=== PATIENT | male | born 1950 | race Caucasian/White ===

== ENCOUNTER 2016-08-17 22:11 | Emergency (ER) | payer OTHER, BC ==
[~2016-08-17] VITALS: Ht 182.9 cm; Wt 107.7 kg
[2016-08-17 22:18] VITALS: TEMP 36.6
[2016-08-17] MEDS ORDERED: CARBIDOPA/LEVODOPA 25/100MG TAB PO STA (22:51)
[2016-08-17 23:07] VITALS: Ht 182.9 cm; Wt 107.7 kg
[2016-08-17] MEDS ORDERED: ENTACAPONE 200 MG TAB PO STA (23:07)
[2016-08-17] MEDS ORDERED: NON-FORMULARY MEDICATION SCH (23:15)
[2016-08-17 23:19] LABS: BASO % 0.5 %; BASO ABS # 0.03 K/uL (0-0.2); COMPLETE YES; EOS % 2.2 %; HEMATOCRIT 44.2 % (42-52); IG% 0.2 %; LYMPH % 30.5 %; MEAN CELL VOLUME 92.7 fL (80-100); MEAN CORPUSCULAR HEMOGLOBIN 32.5 pg (25-34); MEAN CORPUSCULAR HGB CONC 35.1 g/dl (32-36); MEAN PLATELET VOLUME 9.9 fL (7.4-10.4); MONO % 12.4 %; NEUT % 54.2 %; PLATELET COUNT 222 K/uL (130-400); RED BLOOD COUNT 4.77 M/uL (4.7-6.1); WHITE BLOOD COUNT 5.58 K/uL (4.8-10.8)
[2016-08-17 23:41] LABS: ALT/SGPT 27 U/L (12-78); BLOOD UREA NITROGEN 24 mg/dl (7-18); BUN/CREATININE RATIO 21.6 (10-20); CALCIUM 8.8 mg/dl (8.5-10.1); CARBON DIOXIDE 25 mmol/L (21-32); CHLORIDE 108 mmol/L (98-107); GLUCOSE 117 mg/dl (70-99); SODIUM 142 mmol/L (136-145)
[2016-08-18] LABS: ALKALINE PHOSPHATASE 96 U/L (45-117)
[2016-08-18 00:20] LABS: MANUAL MICROSCOPIC REQUIRED? NO; REVIEW REQ? NO; URINE APPEARANCE CLEAR (CLEAR); URINE BILIRUBIN NEG (NEG); URINE COLOR DK YELLOW; URINE EPITHELIAL CELL AUTO 0-5 /lpf (0-5); URINE NITRITE NEG (NEG); URINE SPECIFIC GRAVITY 1.026 (1.000-1.030); UROBILINOGEN NEG (NEG)
[2016-08-18 00:22] LABS: POTASSIUM 4.3 mmol/L (3.5-5.1)
[2016-08-18] MEDS ORDERED: VENL150C PO (00:26)
[2016-08-18] MEDS ORDERED: CLON0.5T3 PO (00:26)
[2016-08-18] MEDS ORDERED: VENL1CAP92 PO (00:26)
[2016-08-18] MEDS ORDERED: PRAM0.755 PO (00:26)
[2016-08-18] MEDS ORDERED: CLON0.1T12 PO (00:29)
[2016-08-18] MEDS ORDERED: TRAZ50TA35 PO (00:29)
[2016-08-18] MEDS ORDERED: CARB25TA12 PO (00:29)
[2016-08-18] MEDS ORDERED: ENTA200T PO (00:29)
[2016-08-18 00:51] LABS: AST/SGOT 28 U/L (15-37); MAGNESIUM 2.2 mg/dl (1.8-2.4)
[2016-08-18 01:36] VITALS: BP 132/81; PULSE 64; O2SAT 94
--- NOTE | 2016-08-18 02:10 | EMERGENCY ROOM VISIT NOTE ---
History Report prepared by Ravi: José Antonio Winters Under the Supervision of: Dr. Tani Multani M.D. First contact with patient: 22:21 Chief Complaint: LEG PAIN,LEG INJURY Stated Complaint: LEG PAIN History of Present Illness The patient is a 65 year old male who presents to the Emergency Room with complaints of persistent leg cramping earlier today. The patient notes that he had been in bathroom and when he went to stand up his legs cramped. He states that the cramping in his left leg was worse than his right, but he felt it in both legs. He described the discomfort as feeling like his legs had "locked up. " The patient called for his nurses and was able to walk back to his bed. However, he wanted to present to the ED for further evaluation because he was afraid of falling. Per patient's daughter, the patient recently switched Neurologists for his Parkinson's. His new Neurologist has been trying to wean him off some medicine since he felt the patient was taking too much and was still having Parkinson's symptoms. The patient notes that it has been a little difficult to wean off the medicine and the past two nights he has been taking the extra dose so that he is able to stay awake. He notes right now that it is tempting to take the extra dose of medicine because it would help make his symptoms feel better. Pt denies LOC, headache, fevers, chills, diaphoresis, visual changes, neck pain, chest pain, breathing difficulties, nausea, vomiting , abdominal pain, back pain, melena, hematochezia, urinary symptoms, lymphadenopathy, rash, or other complaints. Source of History: patient, family Onset: earlier today Position: leg (bilateral) Quality: cramping Timing: other (persistent) Review of Systems See HPI for pertinent positives and negatives. A total of ten systems were reviewed and were otherwise negative. Past Medical & Surgical Medical Problems: (1) Parkinson disease Family History No pertinent family history Social History Smoking Status: Never Smoker Marital Status: Housing Status: lives alone Occupation Status: disabled Current/Historical Medications Scheduled Carbidopa/Levodopa (Sinemet 25MG/100MG), 3 TABS PO QID Clonazepam (Klonopin), 0.5 MG PO QPM Clonidine Hcl (Catapres), 0.1 MG PO QPM Entacapone (Comtan), 200 MG PO QID Pramipexole Dihydrochloride (Mirapex Er), 0.75 MG PO QAM Venlafaxine Hcl (Effexor Xr), 37.5 CAP PO QAM Venlafaxine Hcl (Effexor Xr), 150 MG PO QAM Scheduled PRN Trazodone Hcl (Trazodone), 25 MG PO HS PRN for Sleep Allergies Coded Allergies: No Known Allergies (Unverified , 08/17/16) Physical Exam Vital Signs Date Time Temp Pulse Resp B/P Pulse Ox O2 Delivery O2 Flow Rate FiO2 08/18/16 01:36 64 16 132/81 94 Room Air 08/18/16 00:01 59 14 158/89 95 Room Air 08/17/16 22:18 36.6 68 20 159/87 94 Room Air Physical Exam GENERAL: Awake, alert, well-appearing, in no distress HENT: Normocephalic, atraumatic. Oropharynx unremarkable. EYES: Normal conjunctiva. Sclera non-icteric. NECK: Supple. No nuchal rigidity. FROM. No JVD. RESPIRATORY: Clear to auscultation. CARDIAC: Regular rate, normal rhythm. Extremities warm and well perfused. Pulses equal. ABDOMEN: Soft, non-distended. No tenderness to palpation. No rebound or guarding. No masses. RECTAL: Deferred. MUSCULOSKELETAL: Chest examination reveals no tenderness. The back is symmetrical on inspection without obvious abnormality. There is no CVA tenderness to palpation. No joint edema. LOWER EXTREMITIES: Calves are equal size bilaterally and non-tender. No edema. No discoloration. NEURO: Normal sensorium. No sensory or motor deficits noted. Somewhat thick speech, masked facies of Parkinson's. SKIN: No rash or jaundice noted. Medical Decision & Procedures Laboratory Results 08/17/16 23:05 Red Blood Count 4.77, Mean Corpuscular Volume 92.7, Mean Corpuscular Hemoglobin 32.5, Mean Corpuscular Hemoglobin Concent 35.1, Mean Platelet Volume 9.9, Neutrophils (%) (Auto) 54.2, Lymphocytes (%) (Auto) 30.5, Monocytes (%) (Auto) 12.4, Eosinophils (%) (Auto) 2.2, Basophils (%) (Auto) 0.5, Neutrophils # (Auto ) 3.03, Lymphocytes # (Auto) 1.70, Monocytes # (Auto) 0.69, Eosinophils # (Auto ) 0.12, Basophils # (Auto) 0.03 08/17/16 23:05 08/17/16 23:50 Test 08/17/16 00:00 08/17/16 23:05 08/17/16 23:50 Urine Color DK YELLOW Urine Appearance CLEAR (CLEAR) Urine pH 5.0 (4.5-7.5) Urine Specific [place] 1.026 (1.000-1.030) Urine Protein NEG (NEG) Urine Glucose (UA) NEG (NEG) Urine Ketones TRACE (NEG) Urine Occult Blood NEG (NEG) Urine Nitrite NEG (NEG) Urine Bilirubin NEG (NEG) Urine Urobilinogen NEG (NEG) Urine Leukocyte Esterase SMALL (NEG) Urine WBC (Auto) 5-10 /hpf (0-5) Urine RBC (Auto) 0-4 /hpf (0-4) Urine Hyaline Casts (Auto) 1-5 /lpf (0-5) Urine Epithelial Cells (Auto) 0-5 /lpf (0-5) Urine Bacteria (Auto) NEG (NEG) White Blood Count 5.58 K/uL (4.8-10.8) Red Blood Count 4.77 M/uL (4.7-6.1) Hemoglobin 15.5 g/dL (14.0-18.0) Hematocrit 44.2 % (42-52) Mean Corpuscular Volume 92.7 fL (80-100) Mean Corpuscular Hemoglobin 32.5 pg (25-34) Mean Corpuscular Hemoglobin Concent 35.1 g/dl (32-36) Platelet Count 222 K/uL (130-400) Mean Platelet Volume 9.9 fL (7.4-10.4) Neutrophils (%) (Auto) 54.2 % Lymphocytes (%) (Auto) 30.5 % Monocytes (%) (Auto) 12.4 % Eosinophils (%) (Auto) 2.2 % Basophils (%) (Auto) 0.5 % Neutrophils # (Auto) 3.03 K/uL (1.4-6.5) Lymphocytes # (Auto) 1.70 K/uL (1.2-3.4) Monocytes # (Auto) 0.69 K/uL (0.11-0.59) Eosinophils # (Auto) 0.12 K/uL (0-0.5) Basophils # (Auto) 0.03 K/uL (0-0.2) RDW Standard Deviation 44.6 fL (36.4-46.3) RDW Coefficient of Variation 13.1 % (11.5-14.5) Immature Granulocyte % (Auto) 0.2 % Immature Granulocyte # (Auto) 0.01 K/uL (0.00-0.02) Anion Gap 9.0 mmol/L (3-11) Est Creatinine Clear Calc Drug Dose 86.0 ml/min Estimated GFR () 81.8 Estimated GFR (Non- 70.6 BUN/Creatinine Ratio 21.6 (10-20) Calcium Level 8.8 mg/dl (8.5-10.1) Total Bilirubin 0.5 mg/dl (0.2-1) Alanine Aminotransferase (ALT/SGPT) 27 U/L (12-78) Alkaline Phosphatase 96 U/L (45-117) Total Protein 7.1 gm/dl (6.4-8.2) Albumin 3.7 gm/dl (3.4-5.0) Thyroid Stimulating Hormone (TSH) 1.870 uIu/ml (0.300-4.500) Magnesium Level 2.2 mg/dl (1.8-2.4) Direct Bilirubin < 0.1 mg/dl (0-0.2) Aspartate Amino Transf (AST/SGOT) 28 U/L (15-37) Total Creatine Kinase 154 U/L (39-308) Chemistry Specimen Hemolysis Laboratory results reviewed by me Medications Administered Medications (Trade) Dose Ordered Sig/Cy Route Start Time Stop Time Status Last Admin Dose Admin Carbidopa/Levodopa (Sinemet 25/ 100MG Tab) 3 tab NOW STAT PO 08/17/16 22:51 08/17/16 22:54 DC 08/17/16 23:15 3 TAB Entacapone (Comtan) 200 mg ONE STAT PO 08/17/16 23:07 08/17/16 23:08 DC 08/17/16 23:15 200 MG ED Course 2242: The patient was evaluated in room B4. A complete history and physical exam was performed. 2251: Ordered Carbidopa/ Levodopa 3 tab PO. 2307: Ordered Entacapone 200 mg PO. 0045: I reevaluated the patient. Discussed results and discharge instructions: The patient and his daughter verbalized understanding and agreement. The patient is ready for discharge. Medical Decision Triage Nursing notes reviewed. The patient's presentation and history were concerning for Parkinson's disease and lower leg complaints. Etiologies such as electrolyte abnormality, muscular spasm, complication of Parkinson's disease, joint effusion, infection, trauma, muscular, idiopathic, as well as others were entertained. The patient was doing well on examination. She requested a dose of his Parkinson's medications and was given them. His CBC and urinalysis were unremarkable. The patient's total CK was unremarkable. Potassium and magnesium were normal. On reassessment he was feeling better. He was reassured that his testing was normal. His legs felt better. I discussed conservative management with the patient. I suspect that this was a problem with his. The patient and daughter felt very comfortable with conservative management. He will follow-up closely as an outpatient. If he worsens in any way he will be brought back to the emergency from for reevaluation. By the evaluation outlined above other emergent etiologies such as those listed in the differential, as well as others, were deemed relatively unlikely. The patient and daughter were informed about the findings as listed above. All questions were answered and they were pleased with the treatment. Return instructions were outlined and the patient was discharged in stable condition. The patient was referred to his PCP for follow-up first thing this week for a recheck of the current condition. The chart was completed utilizing [employer] Speech voice recognition software. Grammatical errors, random word insertions, pronoun errors, and incomplete sentences are an occasional consequence of this system due to software limitations, ambient noise, and hardware issues. Any formal questions or concerns about the content, text, or information contained within the body of this dictation should be directly addressed to the physician for clarification. Impression Primary Impression: Bilateral leg pain Additional Impression: History of Parkinson's disease Scribe Attestation The scribe's documentation has been prepared under my direction and personally reviewed by me in its entirety. I confirm that the note above accurately reflects all work, treatment, procedures, and medical decision making performed by me. Departure Information Dispostion Home / Self-Care Referrals [facility] (PCP) Forms HOME CARE DOCUMENTATION FORM, IMPORTANT VISIT INFORMATION Patient Instructions My [facility] Additional Instructions Continue current medications. Follow-up with Dr. Magen Ramirez tomorrow to discuss the Emergency Room visit and medications. Return to the ER for inability to ambulate, severe muscle pains, headache, passing out, difficulty breathing, fevers, numbness, tingling, worsening of your condition, or as needed. Problem Qualifiers
[2016-11-14] MEDS ORDERED: HYDR-3419 PO (15:04)
== END 2016-08-18 01:39 | disposition home or self-care (01) ==
LOC: EDBD 22:11 → C.EDB 22:11
DX: M79.605 Pain in left leg (principal); M79.604 Pain in right leg; G20 Parkinson's disease; Z79.899 Other long term (current) drug therapy

== ENCOUNTER → 2016-11-05 | Outpatient (CLI) | payer OTHER, BC ==
[~2016-11-05] MED LIST: CARB25TA12 PO; CLON0.1T12 PO; CLON0.5T3 PO; ENTA200T PO; HYDR-3419 PO; LORA-741 PO; Mirapex PO; PRAM0.755 PO; TRAZ50TA35 PO; VENL150C PO; VENL1CAP92 PO
[2016-11-05 10:00] LABS: BLOOD UREA NITROGEN 21 mg/dl (7-18); BUN/CREATININE RATIO 19.4 (10-20); CARBON DIOXIDE 27 mmol/L (21-32); CHLORIDE 107 mmol/L (98-107); GLUCOSE 98 mg/dl (70-99); POTASSIUM 4.3 mmol/L (3.5-5.1); SODIUM 141 mmol/L (136-145)
[2016-11-05 10:06] LABS: CALCIUM 9.1 mg/dl (8.5-10.1)
== END | disposition home or self-care (01) ==
LOC: C.LABVPSUW 09:11
PROVIDERS: ATTEND Internal Medicine Critical Care Medicine
DX: N40.0 Benign prostatic hyperplasia without lower urinary tract symptoms (principal); N28.9 Disorder of kidney and ureter, unspecified

== ENCOUNTER → 2016-11-13 | Outpatient (CLI) | payer OTHER, BC ==
--- NOTE | 2016-11-13 15:40 | DIAGNOSTIC IMAGING REPORT ---
ULTRASOUND TESTES AND SCROTUM CLINICAL HISTORY: Right testicular lump and pain. COMPARISON STUDY: No priors. TECHNIQUE: Real-time, grayscale, and color Doppler sonography of the testes and scrotum is performed. Images are reviewed in the transverse and longitudinal planes. FINDINGS: The testes are normal in size. The right testis measures 4.6 x 2.8 x 3.8 cm and the left testis measures 3.8 x 1.9 x 2.9 cm. There is a large lobulated mass identified in the mid to lower pole of the right testis. This measures 3.8 x 2.6 x 3.6 cm in aggregate dimension. Internal flow shown on color imaging. The left testis is homogeneous in echotexture with no left testicular mass identified. Testicular blood flow is present bilaterally and normal Doppler waveforms are preserved in both testes. The epididymal heads are normal in appearance. The right epididymal head measures 1.0 cm in length and the left epididymal head measures 1.0 cm in length. No varicocele or hydrocele is seen. IMPRESSION: 1. There is a 3.8 cm hypoechoic lobulated and vascular mass lesion identified in the mid to lower pole of the right testis. This should be considered testicular neoplasm until proven otherwise. 2. The left testis is normal in appearance. Electronically signed by: Wali Rojas M.D. 11/13/2016 3:39 PM Dictated Date/Time: 11/13/2016 3:33 PM
[2016-11-13 18:54] LABS: BASO % 0.5 %; BASO ABS # 0.03 K/uL (0-0.2); COMPLETE YES; EOS % 1.9 %; HEMATOCRIT 46.7 % (42-52); LYMPH % 36.3 %; LYMPH ABS # 2.08 K/uL (1.2-3.4); MEAN CORPUSCULAR HEMOGLOBIN 32.2 pg (25-34); MEAN CORPUSCULAR HGB CONC 34.3 g/dl (32-36); MONO % 8.4 %; NEUT % 52.9 %; PLATELET COUNT 242 K/uL (130-400); RED BLOOD COUNT 4.97 M/uL (4.7-6.1); WHITE BLOOD COUNT 5.73 K/uL (4.8-10.8)
[2016-11-13 19:26] LABS: BLOOD UREA NITROGEN 18 mg/dl (7-18); CALCIUM 9.5 mg/dl (8.5-10.1); CARBON DIOXIDE 24 mmol/L (21-32); CHLORIDE 108 mmol/L (98-107); GLUCOSE 100 mg/dl (70-99); SODIUM 141 mmol/L (136-145)
== END | disposition home or self-care (01) ==
LOC: C.ULTRBC 14:40
PROVIDERS: ATTEND Urology
DX: N50.9 Disorder of male genital organs, unspecified (principal); N50.819 Testicular pain, unspecified; D40.11 Neoplasm of uncertain behavior of right testis

== ENCOUNTER 2016-11-14 10:49 | Day surgery (SDC) | payer OTHER, BC ==
--- NOTE | 2016-11-13 19:12 | DIAGNOSTIC IMAGING REPORT ---
CHEST 2 VIEWS ROUTINE CLINICAL HISTORY: Preoperative evaluation. Testicular mass. COMPARISON STUDY: No previous studies for comparison. FINDINGS: The lung volumes are normal. Electronic device projects over the left hemithorax. There is no evidence of pulmonary edema. There is no pneumothorax or pleural effusion. No consolidation is present. Cardiomediastinal silhouette is normal. IMPRESSION: No acute cardiopulmonary findings. Electronically signed by: Angus Ruff M.D. 11/13/2016 7:11 PM Dictated Date/Time: 11/13/2016 7:09 PM
[~2016-11-14] VITALS: Ht 182.9 cm; Wt 102.3 kg
[~2016-11-14 10:49] MED LIST changes: +CEFAZOLIN 2000 MG/60 ML D5W IV SCH; -HYDR-3419 PO; -LORA-741 PO; -Mirapex PO; +PATIENT'S HEIGHT AND/OR WEIGHT NEEDED SCH
[2016-11-14 11:16] VITALS: BP 161/89; PULSE 71; TEMP 37; O2SAT 94; Ht 182.9 cm; Wt 102.3 kg
[2016-11-14] MEDS ORDERED: VENL1CAP92 PO (11:40)
[2016-11-14] MEDS ORDERED: VENL150C PO (11:40)
[2016-11-14] MEDS ORDERED: CLON0.5T3 PO (11:40)
[2016-11-14] MEDS ORDERED: Mirapex PO (11:40)
[2016-11-14] MEDS ORDERED: CARB25TA12 PO (11:40)
[2016-11-14] MEDS ORDERED: TRAZ50TA35 PO (11:40)
[2016-11-14] MEDS ORDERED: ENTA200T PO (11:40)
[2016-11-14] MEDS ORDERED: LORA-741 PO (11:40)
[2016-11-14] MEDS ORDERED: ONDANSETRON INJ 2 MG/ML 2 ML VIAL ONE (12:16)
[2016-11-14] MEDS ORDERED: FENTANYL CITRATE INJ 50 MCG/1 ML 2 ML VIAL ONE ×3 (12:16→14:01)
[2016-11-14] MEDS ORDERED: DEXAMETHASONE SOD INJ 4 MG/ML VIAL ONE (12:16)
[2016-11-14] MEDS ORDERED: MIDAZOLAM HCL 1 MG/ML 2ML VIAL ONE (12:16)
[2016-11-14] MEDS ORDERED: LIDOCAINE HCL 2% 2 ML VIAL (20MG/ML) ONE (12:16)
[2016-11-14] MEDS ORDERED: PROPOFOL IV EMULSION 10 MG/ML 20 ML VIAL IV ONE (12:16)
--- NOTE | 2016-11-14 13:04 | History & Physical Bridge Note ---
H&P Re-Evaluation Bridge Note: I have examined the patient, reviewed the History & Physical and in the interval since the performance of the History & Physical I have noted the following changes of clinical significance: No changes noted
[2016-11-14] MEDS ORDERED: EpHEDrine SULFATE 50MG/5ML SYR ONE (13:18)
[2016-11-14] MEDS ORDERED: LIDOCAINE HCL 1% 20 ML VIAL ONE (13:19)
[2016-11-14] MEDS ORDERED: PHENYLEPHRINE 100MCG/ML 5ML SYR ONE (13:46)
[2016-11-14] MEDS ORDERED: PHENYLEPHRINE 100MCG/ML 5ML SYR IV PRN ×2 (14:00)
[2016-11-14] MEDS ORDERED: ONDANSETRON INJ 2 MG/ML 2 ML VIAL IV PRN ×2 (14:00)
[2016-11-14] MEDS ORDERED: ATROPINE SULFATE 0.1 MG/ML 5ML SYR IV PRN ×2 (14:00)
[2016-11-14] MEDS ORDERED: EpHEDrine SULFATE INJ 50 MG/ML AMP IV PRN ×2 (14:00)
[2016-11-14] MEDS ORDERED: HYDROmorphone INJ 2 MG/ML SYR/VIAL IV PRN (14:00)
[2016-11-14] MEDS: HYDROmorphone INJ 2 MG/ML SYR/VIAL IV PRN ×3 (14:44→15:05)
--- NOTE | 2016-11-14 14:55 | [facility] Post Operative Brief Note ---
Immediate Operative Summary Operative Date Nov 14, 2016. Pre-Operative Diagnosis 3 cm Right Testicular Mass Post-Operative Diagnosis 3 cm Right Testicular Mass Procedure(s) Performed Right Radical Orchiectomy Surgeon Dr. Fisher Cancer Program Consultant Surgeon(s) none Estimated Blood Loss 10 cc Findings lipoma of cord testicular mass Specimens A. Lipoma of Right Spermatic Cord B. Right Testicle Disposition Recovery Room / PACU
--- NOTE | 2016-11-14 15:03 | [facility] Operative Report ---
Operative Report Operative Date Nov 14, 2016. Pre-Operative Diagnosis 3 cm Right Testicular Mass Post-Operative Diagnosis same Procedure(s) Performed Right radical orchiectomy Surgeon Dr. Fisher Plastics Bench Mechanic Surgeon(s) none Estimated Blood Loss 10 cc Findings lipoma of cor5d r testicular mass Specimens A. Lipoma of Right Spermatic Cord B. Right Testicle Disposition Recovery Room / PACU Description of Procedure The patient was taken to the operating room where he received preoperative antibiotics and Venodyne stockings were placed. He was given general anesthesia in the supine position. He isn't shaved prepped and draped in the usual sterile fashion. A lateral incision midway between the anterior superior iliac spine and the pubic tubercle laterally on the right side was made for about 4 cm. This was extended down through the subcutaneous tissues to Naima' s fascia. 2 veins were encountered which were tied with 3 0 free ties of Vicryl. The external oblique fascia just at the area of the external ring was identified fascia was cleared as best as I could given some protuberance of the belly. The external ring was opened up securely towards the internal ring sharply. The ilioinguinal nerve was identified and retracted laterally. The cord was mobilized just over the pubic tubercle and there was a lipoma of the cord that was stuck right at this level. This was from the cord and followed up to the internal ring. The neck of the lipoma was quite narrow. I did discuss this with Dr. Geovany Velazco was out of the hospital but analytics consultant. He suggested that I tied the lipoma cord off so that I could separate this from the cord and tie the cord off as well. I did explore the lipoma prior to amputating it. It didn't appear to be only a lipoma. The neck of the lipoma was tied off with 20 3 silk ties 2 of them. And sent separately to pathology. The cord had been clamped just at the level of the external ring initially then I didn't clamped further up towards the internal ring after the lipoma had been removed. It was divided to clamps and tied off with 2-0 silk sutures on both clamps and then a 0 silk suture ligature was used to tie off each half of the cord. No bleeding was seen at this juncture. Great care was taken to make sure that there was no bleeding when the cord was brought up into the wound and from the scrotal wall. At this juncture the external oblique fascia was approximated with running 2-0 Vicryl. The wound was irrigated. There is no evidence of any bleeding that I could see. The Naima's fascia was reapproximated with 3 3-0 Vicryl sutures. Subcutaneous tissues and skin was superiorly anesthetized with 1% lidocaine without epinephrine. The subcutaneous tissue was reapproximated with 3-0 Vicryl interrupted sutures and then the skin was closed with tonja. Patient had a dressing placed the wound was cultured and the surrounding area was cleaned as best skin cut with wet and dry towel. A scrotal support was placed with fluff dressings and the patient was transferred to the recovery room in stable condition I attest to the content of the Intraoperative Record and any orders documented therein. Any exceptions are noted below.
[2016-11-14] MEDS ORDERED: HYDR-3419 PO (15:04)
--- NOTE | 2016-11-14 15:06 | Discharge Instructions ---
Discharge Instructions Date of Service Nov 14, 2016. Visit Reason for Visit: Testicular Mass Discharge Discharge Diagnosis / Problem: post op r radical orchiectomy Discharge Goals Goal(s): Improve disease control, Learn about illness, Diagnostic testing, Therapeutic intervention Activity Recommendations Activity Limitations: per Instructions/Follow-up section (keep ice on wound 30 minutes on and 30 off) Anesthesia . Post Anesthesia Instructions: If you have had General Anesthesia or IV Sedation: * Do not drive today. * Resume driving when surgeon permits. * Do not make important decisions or sign legal documents today. * Call surgeon for: 1. Temperature elevations greater than 101 degrees F. 2. Uncontrollable pain. 3. Excessive bleeding. 4. Persistent nausea and vomiting. 5. Medication intolerance (nausea, vomiting or rash). * For nausea and vomiting use only clear liquids such as: tea, soda, bouillon until nausea subsides, then gradually increase diet as tolerated. * If you have any concerns or questions, call your surgeon's office. If physician is unavailable and it is an emergency, call 911 or go to the nearest emergency room. . Diet Recommendations Recommended Home Diet: resume previous diet Procedures Procedures Performed: Right Radical Orchiectomy Pending Studies Studies pending at discharge: no Medical Emergencies . Who to Call and When: Medical Emergencies: If at any time you feel your situation is an emergency, please call 911 immediately. . Non-Emergent Contact Non-Emergency issues call your: Hospital Doctor, Neurologist, Urologist Call Non-Emergent contact if: temperature is above 101, your pain is not controlled, your pain is concerning you, wound has increased drainage, wound has increased redness, wound has increased pain . . "Provider Documentation" section prepared by Neil Fisher. .
[2016-11-14 15:35] VITALS: BP 141/83; PULSE 68; TEMP 36.8; O2SAT 95
[2016-11-14 16:00] VITALS: BP 139/84; PULSE 67; O2SAT 94
--- NOTE | 2016-11-14 16:18 | Anesthesiology Progress Note ---
Anesthesia Post Op Note Date & Time Nov 14, 2016 at 16:18 Vital Signs Pain Intensity: 4 Vital Signs Past 12 Hours Date Time Temp Pulse Resp B/P (MAP) Pulse Ox O2 Delivery O2 Flow Rate FiO2 11/14/16 16:00 67 16 139/84 94 Room Air 11/14/16 15:35 36.8 68 16 141/83 95 Room Air 11/14/16 15:29 64 16 95 11/14/16 15:29 64 16 11/14/16 15:25 139/81 11/14/16 15:24 66 16 95 11/14/16 15:24 66 16 11/14/16 15:21 130/80 11/14/16 15:19 63 14 11/14/16 15:19 62 14 92 11/14/16 15:16 36.9 11/14/16 15:15 137/79 11/14/16 15:14 63 16 92 11/14/16 15:14 63 16 11/14/16 15:13 65 17 11/14/16 15:13 66 17 92 11/14/16 15:10 131/83 11/14/16 15:08 64 12 11/14/16 15:08 65 12 94 11/14/16 15:07 64 15 11/14/16 15:07 64 15 95 11/14/16 15:05 139/84 11/14/16 15:02 63 18 92 11/14/16 15:02 63 18 11/14/16 15:01 122/85 11/14/16 14:57 66 17 94 11/14/16 14:57 63 17 11/14/16 14:56 62 12 135/82 96 11/14/16 14:56 61 12 11/14/16 14:51 62 16 11/14/16 14:51 62 16 151/88 96 11/14/16 14:46 64 25 98 11/14/16 14:46 64 25 11/14/16 14:45 144/86 11/14/16 14:41 67 17 11/14/16 14:41 67 17 98 11/14/16 14:40 135/81 11/14/16 14:36 67 19 11/14/16 14:36 67 19 143/77 98 11/14/16 14:36 36.9 68 16 143/77 97 Mask 10 11/14/16 11:16 37 71 20 161/89 (113) 94 Room Air Notes Mental Status: alert / awake / arousable, participated in evaluation Pt Amnestic to Procedure: Yes Nausea / Vomiting: adequately controlled Pain: adequately controlled Airway Patency, RR, SpO2: stable & adequate BP & HR: stable & adequate Hydration State: stable & adequate Anesthetic Complications: no major complications apparent
[2016-11-14 16:30] VITALS: BP 128/74; PULSE 68; TEMP 36.8; O2SAT 94
== END 2016-11-14 17:00 | disposition home or self-care (01) ==
LOC: C.ACU 10:49
PROVIDERS: ATTEND Urology
DX: C62.91 Malignant neoplasm of right testis, unspecified whether descended or undescended (principal); D17.6 Benign lipomatous neoplasm of spermatic cord

== ENCOUNTER → 2016-12-02 | Outpatient (CLI) | payer MEDICARE ==
[~2016-12-02] MED LIST changes: -CEFAZOLIN 2000 MG/60 ML D5W IV SCH; -CLON0.1T12 PO; +HYDR-3419 PO; +LORA-741 PO; +Mirapex PO; +OPTIRAY 320 IV PRN; -PATIENT'S HEIGHT AND/OR WEIGHT NEEDED SCH; -PRAM0.755 PO
--- NOTE | 2016-12-02 15:40 | DIAGNOSTIC IMAGING REPORT ---
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 COMPARISON: None. FINDINGS: The lungs are clear. The mediastinal vascular structures are within normal limits. No mediastinal or hilar lymphadenopathy. No pleural effusion or pneumothorax. Limited views of the upper abdomen demonstrate a normal liver and spleen. IMPRESSION: No significant abnormality identified within the chest. The above report was generated using voice recognition software. It may contain grammatical, syntax or spelling errors. Electronically signed by: Silvano Krishnamurthy M.D. 12/02/2016 3:39 PM Dictated Date/Time: 12/02/2016 3:38 PM
--- NOTE | 2016-12-02 16:58 | DIAGNOSTIC IMAGING REPORT ---
CT OF THE ABDOMEN AND PELVIS WITH CONTRAST CLINICAL HISTORY: Testicular cancer. COMPARISON STUDY: None. TECHNIQUE: Following IV administration of 116 mL of Optiray-320, axial images of the abdomen and pelvis were obtained from the lung bases to the proximal femurs. Images were reviewed in the axial, sagittal, and coronal planes. IV contrast was administered without complication. FINDINGS: The chest CT will be reported separately. The liver, spleen, pancreas and left adrenal gland are unremarkable. There is a 1.4 cm right adrenal nodule. There are water attenuation bilateral renal lesions, the largest of which is 3.2 cm lesion within the lower aspect of the left renal pelvis. These reflect cysts. There are no solid renal lesions. There is no hydronephrosis. The caliber and wall thickness of small and large bowel are normal. No enlarged lymph nodes are identified within the abdomen or the pelvis. There are findings consistent with a right sided orchiectomy with mild infiltration within the operative bed along the expected course of the right spermatic cord. There is no fluid collection to suggest an abscess. There are no suspicious osseous lesions. IMPRESSION: 1. No convincing evidence for metastatic disease within the abdomen or pelvis. 2. 1.4 cm right adrenal nodule. This is indeterminate although likely benign and can be assessed on subsequent studies to ensure stability. 3. Expected findings following radical right orchiectomy. Electronically signed by: Angus Ruff M.D. 12/02/2016 4:57 PM Dictated Date/Time: 12/02/2016 3:35 PM
== END | disposition home or self-care (01) ==
LOC: C.CTS 14:09
PROVIDERS: ATTEND Urology
DX: C62.90 Malignant neoplasm of unspecified testis, unspecified whether descended or undescended (principal); R97.20 Elevated prostate specific antigen [PSA]

== ENCOUNTER → 2017-01-23 | Outpatient (CLI) | payer MEDICARE ==
[~2017-01-23] MED LIST changes: -OPTIRAY 320 IV PRN
== END ==
LOC: C.LABVPSUW 09:00
PROVIDERS: ATTEND Internal Medicine Critical Care Medicine
DX: R97.20 Elevated prostate specific antigen [PSA] (principal)

== ENCOUNTER → 2017-02-19 | Outpatient (CLI) | payer MEDICARE ==
[~2017-02-19] MED LIST changes: +OPTIRAY 320 IV PRN
--- NOTE | 2017-02-19 13:39 | DIAGNOSTIC IMAGING REPORT ---
CT OF THE ABDOMEN AND PELVIS WITH CONTRAST CLINICAL HISTORY: Testicular cancer. COMPARISON STUDY: CT of the abdomen and pelvis December 02, 2016. TECHNIQUE: Following IV administration of 118 mL of Optiray-320, axial images of the abdomen and pelvis were obtained from the lung bases to the proximal femurs. Images were reviewed in the axial, sagittal, and coronal planes. IV contrast was administered without complication. A dose lowering technique was utilized adhering to the principles of ALARA. Oral contrast was administered. CT DOSE: 848.91 mGy.cm FINDINGS: The liver, spleen, left adrenal gland and pancreas are unremarkable. Water attenuation bilateral renal lesions reflect cysts. A right adrenal nodule is unchanged since prior exam. This measures approximately 1.9 cm. No enlarged abdominal or pelvic lymph nodes are present. Caliber and wall thickness of small and large bowel are normal. Prostate is mildly enlarged. There are expected findings following right radical orchiectomy. There are no suspicious osseous lesions. IMPRESSION: 1. No evidence of metastatic disease within the abdomen or pelvis. 2. Stable right adrenal nodule which is likely benign but can be assessed on subsequent studies to ensure stability. Electronically signed by: Angus Ruff M.D. 02/19/2017 1:38 PM Dictated Date/Time: 02/19/2017 1:30 PM
== END | disposition home or self-care (01) ==
LOC: C.CTS 12:07
PROVIDERS: ATTEND Internal Medicine Hematology & Oncology
DX: C62.10 Malignant neoplasm of unspecified descended testis (principal); E27.9 Disorder of adrenal gland, unspecified

== ENCOUNTER → 2017-02-24 | Outpatient (CLI) | payer MEDICARE ==
[~2017-02-24] MED LIST changes: -OPTIRAY 320 IV PRN
== END | disposition home or self-care (01) ==
LOC: C.PATHSPEC 18:18
PROVIDERS: ATTEND Urology
DX: R97.20 Elevated prostate specific antigen [PSA] (principal)

== ENCOUNTER → 2017-05-28 | Outpatient (CLI) | payer MEDICARE ==
[~2017-05-28] MED LIST changes: -HYDR-3419 PO; +OPTIRAY 320 IV PRN
--- NOTE | 2017-05-28 11:34 | DIAGNOSTIC IMAGING REPORT ---
CT SCAN OF THE ABDOMEN AND PELVIS WITH IV CONTRAST CLINICAL HISTORY: Testicular cancer follow-up. COMPARISON STUDY: Abdominal CT dated 02/19/2017. TECHNIQUE: Following the IV administration of 94 cc of Optiray 320, CT scan of the abdomen and pelvis is performed from the lung bases to the proximal femora. Images are reviewed in the axial, sagittal, and coronal planes. IV contrast was administered without complication. A dose lowering technique was utilized adhering to the principles of ALARA. CT DOSE: 1360.17 mGycm FINDINGS: Lung bases: The heart is normal in size and without pericardial effusion. The lung bases are clear noting dependent atelectasis. Liver: The contrast-enhanced liver is normal in size, contour, and attenuation. There is no intrahepatic biliary ductal dilatation. The hepatic veins and portal veins are patent. Gallbladder: Unremarkable. Spleen: Normal in size and attenuation. Pancreas: Unremarkable. Adrenal glands: A 1.5 cm right adrenal nodule is unchanged from prior studies. Adrenal glands are otherwise normal in appearance. Kidneys: The contrast enhanced kidneys demonstrate mild cortical atrophy and are without hydronephrosis. The kidneys enhance symmetrically. Bilateral renal cysts measure up to 3.3 cm. Abdominal vasculature: The abdominal aorta is normal in course and caliber noting mild to moderate atherosclerotic calcification. Bowel: Mild to moderate colonic fecal retention is observed. No bowel obstruction is seen. The appendix is well-visualized and normal. Peritoneum: There is no intraperitoneal free air or abdominal ascites. There is a small fat-containing umbilical hernia. Lymphadenopathy: There are no pathologically enlarged retroperitoneal lymph nodes. Pelvic viscera: There is median lobe hypertrophy of the prostate gland. The bladder wall appears thickened and trabeculated suggesting chronic outlet obstruction. A tiny diverticulum is noted at the bladder dome. There is evidence of previous right inguinal herniorrhaphy. Skeletal structures: There is moderate lumbosacral spondylosis. Arthritic change is also seen in the hips and sacroiliac joints. No lytic or blastic lesions are seen. IMPRESSION: 1. There is no evidence of metastatic disease in the abdomen or pelvis. 2. A stable right adrenal nodule is of low suspicion. 3. Mild to moderate colonic fecal retention. Electronically signed by: Wali Rojas M.D. 05/28/2017 11:32 AM Dictated Date/Time: 05/28/2017 11:22 AM
== END | disposition home or self-care (01) ==
LOC: C.CTS 10:44
PROVIDERS: ATTEND Internal Medicine Hematology & Oncology
DX: C62.90 Malignant neoplasm of unspecified testis, unspecified whether descended or undescended (principal)

== ENCOUNTER → 2017-07-10 | Outpatient (CLI) | payer MEDICARE ==
[~2017-07-10] MED LIST changes: -OPTIRAY 320 IV PRN
== END | disposition home or self-care (01) ==
LOC: C.LABVPSUA 12:04
PROVIDERS: ATTEND Internal Medicine Critical Care Medicine
DX: N39.0 Urinary tract infection, site not specified (principal)

== ENCOUNTER → 2017-07-13 | Outpatient (CLI) | payer MEDICARE ==
[2017-07-13 09:07] LABS: HEMATOCRIT 43.4 % (42-52); HEMOGLOBIN 15.1 g/dL (14.0-18.0); MEAN CELL VOLUME 96.2 fL (80-100); MEAN CORPUSCULAR HEMOGLOBIN 33.5 pg (25-34); MEAN CORPUSCULAR HGB CONC 34.8 g/dl (32-36); MEAN PLATELET VOLUME 10.4 fL (7.4-10.4); PLATELET COUNT 203 K/uL (130-400); RED CELL DISTRIBUTION WIDTH CV 12.9 % (11.5-14.5); RED CELL DISTRIBUTION WIDTH SD 45.3 fL (36.4-46.3)
[2017-07-13 09:17] LABS: BLOOD UREA NITROGEN 15 mg/dl (7-18); CARBON DIOXIDE 26 mmol/L (21-32); CREATININE 1.12 mg/dl (0.60-1.40); GLUCOSE 104 mg/dl (70-99); POTASSIUM 3.8 mmol/L (3.5-5.1); SODIUM 140 mmol/L (136-145)
== END | disposition home or self-care (01) ==
LOC: C.LABVPSUA 08:24
PROVIDERS: ATTEND Internal Medicine Critical Care Medicine
DX: I10 Essential (primary) hypertension (principal)

== ENCOUNTER → 2017-08-31 | Outpatient (CLI) | payer MEDICARE ==
--- NOTE | 2017-08-31 10:57 | DIAGNOSTIC IMAGING REPORT ---
CHEST 2 VIEWS ROUTINE CLINICAL HISTORY: Testicular seminoma COMPARISON STUDY: 11/13/2016 FINDINGS: The cardiac and be spinal contours remain stable. There is no focal pulmonary consolidation. There is no failure. There are no pleural effusions. There are no suspicious pulmonary masses. A generator projects over the left chest wall. There are electrodes extending cephalad into the neck.[ IMPRESSION: No active disease in the chest. Electronically signed by: Frank Chavarria M.D. 08/31/2017 10:56 AM Dictated Date/Time: 08/31/2017 10:55 AM
[2017-08-31 12:19] LABS: BASO ABS # 0.06 K/uL (0-0.2); EOS % 1.3 %; EOS ABS # 0.08 K/uL (0-0.5); HEMATOCRIT 42.4 % (42-52); IG# 0.01 K/uL (0.00-0.02); LYMPH % 24.7 %; MEAN CELL VOLUME 93.8 fL (80-100); MEAN CORPUSCULAR HEMOGLOBIN 33.2 pg (25-34); MEAN CORPUSCULAR HGB CONC 35.4 g/dl (32-36); MEAN PLATELET VOLUME 10.6 fL (7.4-10.4); MONO % 8.4 %; MONO ABS # 0.51 K/uL (0.11-0.59); NEUT % 64.4 %; NEUT ABS # 3.92 K/uL (1.4-6.5); PLATELET COUNT 207 K/uL (130-400); RED CELL DISTRIBUTION WIDTH SD 44.5 fL (36.4-46.3); WHITE BLOOD COUNT 6.08 K/uL (4.8-10.8)
[2017-08-31 12:34] LABS: ALBUMIN 3.9 gm/dl (3.4-5.0); ALT/SGPT 12 U/L (12-78); AST/SGOT 17 U/L (15-37); BLOOD UREA NITROGEN 17 mg/dl (7-18); CALCIUM 9.1 mg/dl (8.5-10.1); CARBON DIOXIDE 24 mmol/L (21-32); CREATININE 1.12 mg/dl (0.60-1.40); GLUCOSE 89 mg/dl (70-99); POTASSIUM 4.1 mmol/L (3.5-5.1); SODIUM 138 mmol/L (136-145)
[2017-08-31 12:37] LABS: ALKALINE PHOSPHATASE 78 U/L (45-117); TOTAL PROTEIN 7.1 gm/dl (6.4-8.2)
== END | disposition home or self-care (01) ==
LOC: C.RAD 10:25
PROVIDERS: ATTEND Internal Medicine Hematology & Oncology
DX: C62.90 Malignant neoplasm of unspecified testis, unspecified whether descended or undescended (principal)

== ENCOUNTER 2021-07-07 12:19 | Inpatient (IN) ==
--- NOTE | 2021-07-07 12:44 | Emergency Department Note ---
History of Present Illness General Chief complaint: Chest Pain Stated complaint: Chest pain Time Seen by Provider: 07/07/21 12:22 History of Present Illness [id number] male presents to the ED with a chief complaint of pain that radiates from his chest into his upper back. The patient states that his symptoms started about an hour ago while he was sitting on the toilet having a bowel movement. He may have had a syncopal episode, EMS was unsure. The patient comes from a local senior care. He was diaphoretic and pale for EMS. His color has improved since onset of symptoms. EMS state that his blood p ressure was initially 100/70. Pulse ox was 90% on 2 L. He does not use home oxygen. I did give him aspirin p.o. When I talked to the patient, he tells me is a pressure sensation in his chest that radiates into his back. No fevers or recent illness. No trauma. Did not report straining to move his bowels. No cough. Home Medications Medication Instructions Recorded Confirmed Type acetaminophen 325 mg tablet 650 mg PO Q4 PRN MDD 3g 01/27/19 07/07/21 History (Tylenol) bismuth subsalicylate 262 mg 2 tab PO Q6 PRN 01/27/19 07/07/21 History tablet (Pepto-Bismol) carbidopa ER 61.25 mg-levodopa 245 1 cap PO QID 11/08/20 07/07/21 History mg capsule,extended release (Rytary) clonazepam 0.5 mg tablet 0.5 mg PO HS 11/08/20 07/07/21 History docosanol 10 % topical cream 1 applic TOPICAL 5XD PRN 11/08/20 07/07/21 History (Abreva) entacapone 200 mg tablet 200 mg PO QID 11/08/20 07/07/21 History finasteride 5 mg tablet 5 mg PO HS 11/08/20 07/07/21 History melatonin 5 mg tablet 5 mg PO HS 11/08/20 07/07/21 History methylcellulose (with sugar) oral 1 tbsp PO DAILY PRN 11/08/20 07/07/21 History powder polyethylene glycol 3350 17 17 g PO DAILY PRN 11/08/20 07/07/21 History gram/dose oral powder (Miralax) tamsulosin 0.4 mg capsule 0.4 mg PO HS 11/08/20 07/07/21 History trazodone 150 mg tablet 75 mg PO HS 11/08/20 07/07/21 History bisacodyl 10 mg rectal suppository [address] DAILY PRN 07/07/21 07/07/21 History camphor 11 %-menthol 16 % topical 1 applic TOPICAL Q4H 07/07/21 07/07/21 History cream (Icy Hot Advanced Relief) cholecalciferol (vitamin D3) 50 50 mcg PO DAILY 07/07/21 07/07/21 History mcg (2,000 unit) capsule (Vitamin D3) famotidine 20 mg tablet 20 mg PO DAILY 07/07/21 07/07/21 History magnesium hydroxide 400 mg/5 mL 30 ml PO DAILY 07/07/21 07/07/21 History oral suspension (Milk of Magnesia) mirabegron 50 mg tablet,extended 50 mg PO DAILY 07/07/21 07/07/21 History release 24 hr (Myrbetriq) pramipexole 0.75 mg 0.75 mg PO DAILY 07/07/21 07/07/21 History tablet,extended release 24 hr sodium phosphates 19 gram-[address] DAILY PRN 07/07/21 07/07/21 History gram/118 mL enema (Fleet Enema) venlafaxine 150 mg 150 mg PO DAILY 07/07/21 07/07/21 History capsule,extended release 24 hr venlafaxine 75 mg capsule,extended 75 mg PO DAILY 07/07/21 07/07/21 History release 24 hr Allergies Allergy/AdvReac Type Severity Reaction Status Date / Time No Known Allergies Allergy Verified 07/07/21 13:36 Past Med/Surg History Medical History Benign prostate hyperplasia BPH loc w urin obs/LUTS Depression with anxiety Nephrolithiasis Parkinson disease Restless leg syndrome Seminoma of right testis Testicular cancer Urge incontinence Surgical History History of orchiectomy (~2017) seminoma, right S/P deep brain stimulator placement Family History Brother Lymphoma Mother Breast cancer Son Malignant neoplasm of testis Social History Smoking Status: Never smoker Hx Alcohol Use: No Hx Substance Use: No Feels Safe at Home: Yes Review of Systems A total of 10 systems reviewed and were otherwise negative Physical Exam Vital Signs Vital Signs - 24 hr 07/07/21 12:50 Pulse Rate 79 Respiratory Rate 18 Blood Pressure 112/48 L Blood Pressure Mean 69 Pulse Oximetry 96 Oxygen Delivery Method Nasal Cannula Oxymask Oxygen Flow Rate 4 Sepsis Recent Fever Within 48 Hours No Sepsis New/Unexplained Change in Mental Status No Sepsis Action Taken by Nursing No Action Required CONSTITUTIONAL/VITAL SIGNS: Reviewed / noted above. GENERAL: Non-toxic in appearance. INTEGUMENTARY: Warm, dry, and [place]. HEAD: Normocephalic. EYES: without scleral icterus or trauma. ENT/OROPHARYNX: clear and moist. LYMPHADENOPATHY/NECK: Is supple without lymphadenopathy or meningismus. RESPIRATORY: Clear to auscultation bilaterally. No increased work of breathing. CARDIOVASCULAR: Regular rate and rhythm. GI/ABDOMEN: Soft and nontender. No organomegaly or pulsatile mass. EXTREMITIES: Warm and well perfused. Pulses in the upper extremities are symmetric. Lower extremities, he has a good pulse in the right foot but not as strong in the left foot. BACK: No CVA tenderness. NEUROLOGICAL: Intact without focal deficits. PSYCHIATRIC: normal affect. MUSCULOSKELETAL: Normally developed with good muscle tone. TRIAGE NURSING DOCUMENTATION REVIEWED. Course Administered Medications Discontinued Medications Ioversol (Optiray 320 125ml) 120 ml IV ONCE ONE Stop: 07/07/21 13:28 Last Admin: 07/07/21 13:28 Dose: 120 ml Documented by: [id number] Critical Care Time Critical Care Time: Yes Total Critical Care Time: 30 I have personally spent 30 minutes of critical care time in the direct ma nagement of this patient. This includes bedside care, interpretation of diagnostic studies, and testing, discussion with consultants, patient, and family members, and other required patient management activities. This 30 minutes is in excess of all separately billable procedures. Medical Decision Making Differential Diagnosis The differential that was considered includes acute myocardial infarction, acute coronary syndrome, myocarditis, pericarditis, pericardial effusions /tamponade, esophageal perforation, thoracic aortic dissection, pulmonary embolism, pneumonia, pneumothorax, pancreatitis, shingles, acute cholecystitis, perforated abdominal viscus. Medical Records Attestation: I reviewed the patient's medical records. Home Medications Current Medication List: was personally reviewed by me Laboratory Data Attestation: I reviewed the patient's lab results. Result diagrams: 07/07/21 12:37 07/07/21 13:58 Lab Results 07/07/21 07/07/21 07/07/21 Range/Units 12:37 12:37 12:37 WBC 8.01 (4.8-10.8) K/uL RBC 4.94 (4.7-6.1) M/uL Hgb 16.3 (14.0-18.0) g/dL Hct 48.2 (42-52) % MCV 97.6 (80-100) fL MCH 33.0 (25-34) pg MCHC 33.8 (32-36) g/dL RDW Std Deviation 48.9 H (36.4-46.3) fL RDW Coeff of Vaughn 13.7 (11.5-14.5) % Plt Count 191 (130-400) K/uL MPV 11.6 H (7.4-10.4) fL Immature Gran % (Auto) 0.1 % Neut % (Auto) 64.1 % Lymph % (Auto) 27.1 % O'Brien % (Auto) 7.4 % Eos % (Auto) 1.1 % Baso % (Auto) 0.2 % Neut # (Auto) 5.13 (1.4-6.5) K/uL Lymph # (Auto) 2.17 (1.2-3.4) K/uL O'Brien # (Auto) 0.59 (0.11-0.59) K/uL Eos # (Auto) 0.09 (0-0.5) K/uL Baso # (Auto) 0.02 (0-0.2) K/uL Immature Gran # (Auto) 0.01 (0.00-0.02) K/uL PT 11.2 (9.0-12.0) Seconds INR 1.1 (0.9-1.1) APTT 21.0 (21.0-31.0) Seconds PTT Ratio 0.8 D-Dimer (0-500) ug/L FEU Sodium Cancelled Potassium Cancelled Chloride Cancelled Carbon Dioxide Cancelled Anion Gap Cancelled BUN Cancelled Creatinine Cancelled Est Cr Clr Drug Dosing Cancelled Est GFR ( Amer) Cancelled Est GFR (Non-Af Amer) Cancelled BUN/Creatinine Ratio Cancelled Glucose Cancelled Calcium Cancelled Total Bilirubin Cancelled AST Cancelled ALT Cancelled Alkaline Phosphatase Cancelled Troponin I Cancelled Total Protein Cancelled Albumin Cancelled Globulin Cancelled Albumin/Globulin Ratio Cancelled 07/07/21 07/07/21 Range/Units 13:57 13:58 WBC (4.8-10.8) K/uL RBC (4.7-6.1) M/uL Hgb (14.0-18.0) g/dL Hct (42-52) % MCV (80-100) fL MCH (25-34) pg MCHC (32-36) g/dL RDW Std Deviation (36.4-46.3) fL RDW Coeff of Vaughn (11.5-14.5) % Plt Count (130-400) K/uL MPV (7.4-10.4) fL Immature Gran % (Auto) % Neut % (Auto) % Lymph % (Auto) % O'Brien % (Auto) % Eos % (Auto) % Baso % (Auto) % Neut # (Auto) (1.4-6.5) K/uL Lymph # (Auto) (1.2-3.4) K/uL O'Brien # (Auto) (0.11-0.59) K/uL Eos # (Auto) (0-0.5) K/uL Baso # (Auto) (0-0.2) K/uL Immature Gran # (Auto) (0.00-0.02) K/uL PT (9.0-12.0) Seconds INR (0.9-1.1) APTT (21.0-31.0) Seconds PTT Ratio D-Dimer [id number] H* (0-500) ug/L FEU Sodium 135 L Potassium 4.2 Chloride 106 Carbon Dioxide 24 Anion Gap 5 BUN 22 Creatinine 1.38 Est Cr Clr Drug Dosing 64.6 Est GFR ( Amer) 60.0 Est GFR (Non-Af Amer) 51.8 BUN/Creatinine Ratio 15.9 Glucose 99 Calcium 9.4 Total Bilirubin 0.9 AST 12 L ALT 3 L Alkaline Phosphatase 67 Troponin I Total Protein 6.5 Albumin 3.8 Globulin 2.7 Albumin/Globulin Ratio 1.4 Imaging Data Radiologist's Impression: Chest X-Ray 07/07/21 12:29 XR chest 1V portable HISTORY: 70 years-old Male Chest Pain acute atypical chest pain COMPARISON: Chest radiograph 11/08/2020 TECHNIQUE: Portable AP view of the chest FINDINGS: The right axilla is enlarged. Battery pack projects over the left chest with leads projected over the left neck. No pneumothorax, pleural effusion, airspace consolidation or overt pulmonary edema. Degenerative changes of the shoulders and spine. IMPRESSION: Cardiomegaly without acute process. ACT 112: Negative or not required by law. The above report was generated using voice recognition software. It may contain grammatical, syntax or spelling errors. Electronically signed by: Gianni Wells M.D. 07/07/2021 12:59 PM Chest CTA 07/07/21 12:37 CT angio chest dissec wo/w con HISTORY: 70 years-old Male chest and back pain acute chest and back pain COMPARISON: CT abdomen pelvis 05/29/2021, chest CT 11/19/2018 TECHNIQUE: CTA of the chest was obtained both with and without the use of 120 mL Optiray 320. 3-D coronal and sagittal MIPS were obtained from the axial data set and were submitted for review. All measurements were obtained according to NASCET criteria. A dose lowering technique was used consistent with the principals of ALARA. FINDINGS: CTA: Mild cardiomegaly. Trace pericardial effusion. No thoracic aortic aneurysm or dissection. No mediastinal hematoma. Battery pack of the left chest wall is noted with stimulator leads extending superiorly along the left neck outside the [id number]. Extensive bilateral pulmonary emboli with saddle embolus. There is evidence of right heart strain with straightening of the intraventricular septum. CT CHEST: Unremarkable thyroid. No pathologically enlarged lymph nodes. Trace right pleural effusion. No pneumothorax. Mild subsegmental right basilar atelectasis. No pulmonary infarct, suspicious pulmonary nodule or mass. No overt pulmonary edema. The central airways are patent. Mild distention of the gallbladder. Stable right adrenal nodule. Mild fecal retention. Unremarkable soft tissues. Degenerative changes of the shoulders and spine. No acute fracture. IMPRESSION: 1. Extensive pulmonary emboli with saddle embolus. Additionally, there is evidence of right heart strain. 2. Trace right pleural effusion with mild subsegmental right basilar atelectasis. 3. No acute aortic pathology. 4. Chronic findings as above. ACT 112: Negative or not required by law. The above report was generated using voice recognition software. It may contain grammatical, syntax or spelling errors. Electronically signed by: Gianni Wells M.D. 07/07/2021 1:39 PM ECG Data Attestation: I personally reviewed and interpreted this ECG as follows: Additional Comments: Twelve-lead EKG: Per my interpretation shows a normal sinus rhythm at a rate of 80. No ST elevation. No PVCs. Normal QTC. Cardiac monitoring: An order was placed for continuous cardiac monitoring. The monitor shows a rate of 80 with sinus rhythm. Occasional PVCs. MDM Narrative Patient presents with a chest pressure that started when he was moving his bowels on the toilet. The pressure/pain radiated into his back between his shoulder blades. He was diaphoretic and pale when he first was evaluated by EMS. He is awake and alert on my evaluation. CT scan of the chest reveals extensive bilateral PEs with evidence of saddle embolus and right heart strain. CBC was unremarkable. EKG shows a normal sinus rhythm at a rate of 80. I did speak with Dr. Nam about the patient. As the patient is clinically stable and hemodynamically stable, the patient will be started on IV heparin and admitted to the hospital. Impression & Plan Pulmonary embolism, bilateral Discharge Plan Visit Data Chief Complaint: Chest Pain Stated Complaint: Chest pain ED Provider: Omari Box Discharge Problem: Pulmonary embolism, bilateral Patient Disposition: Home - Self-Care Forms Stand Alone Forms: [facility], Virtual Emergency Department, Important Visit Information Prescriptions Prescriptions: No Action acetaminophen [Tylenol] 325 mg tablet 650 mg PO Q4 MDD 3g PRN (Reason: Fever) RF: 0 Pepto-Bismol 262 mg tablet 2 tab PO Q6 PRN (Reason: gi distress) RF: 0 Rytary 61.25-245 mg capsule, extended release 1 cap PO QID RF: 0 docosanol [Abreva] 10 % Cream 1 applic TOPICAL 5XD PRN (Reason: Cold Sores) RF: 0 polyethylene glycol 3350 [Miralax] 17 gram/dose Powder 17 g PO DAILY PRN (Reason: Constipation) RF: 0 clonazepam 0.5 mg tablet 0.5 mg PO HS RF: 0 entacapone 200 mg tablet 200 mg PO QID RF: 0 finasteride 5 mg tablet 5 mg PO HS RF: 0 tamsulosin 0.4 mg capsule 0.4 mg PO HS RF: 0 trazodone 150 mg tablet 75 mg PO HS RF: 0 melatonin 5 mg Tablet 5 mg PO HS RF: 0 Soluble Fiber Therapy Powder 1 tbsp PO DAILY PRN (Reason: Constipation) RF: 0 venlafaxine 75 mg capsule,extended release 24hr 75 mg PO DAILY RF: 0 venlafaxine 150 mg capsule,extended release 24hr 150 mg PO DAILY RF: 0 famotidine 20 mg tablet 20 mg PO DAILY RF: 0 magnesium hydroxide [Milk of Magnesia] 400 mg/5 mL Suspension 30 ml PO DAILY RF: 0 bisacodyl 10 mg Suppository [address] DAILY PRN (Reason: Constipation) RF: 0 Fleet Enema 19-7 gram/118 mL Enema [address] DAILY PRN (Reason: Constipation) RF: 0 cholecalciferol (vitamin D3) [Vitamin D3] 50 mcg (2,000 unit) Capsule 50 mcg PO DAILY RF: 0 pramipexole 0.75 mg tablet extended release 24 hr 0.75 mg PO DAILY RF: 0 Myrbetriq 50 mg tablet extended release 24 hr 50 mg PO DAILY RF: 0 Icy Hot Advanced Relief 11-16 % Cream 1 applic TOPICAL Q4H RF: 0 Referrals Referrals: [facility] Maximiliano Davis [Primary Care Provider] -
[2021-07-07 12:49] LABS: Basophils # (auto) 0.02 K/uL (0-0.2); Basophils % (auto) 0.2 %; Eosinophils # (auto) 0.09 K/uL (0-0.5); Eosinophils % (auto) 1.1 %; Hematocrit (blood only) 48.2 % (42-52); Hemoglobin 16.3 g/dL (14.0-18.0); Immature Granulocytes # (auto) 0.01 K/uL (0.00-0.02); Immature Granulocytes % (auto) 0.1 %; Lymphocytes # (auto) 2.17 K/uL (1.2-3.4); Lymphocytes % (auto) 27.1 %; Mean Corpuscular Hgb Conc 33.8 g/dL (32-36); Mean Corpuscular Volume 97.6 fL (80-100); Mean Platelet Volume 11.6 fL (7.4-10.4); Monocytes # (auto) 0.59 K/uL (0.11-0.59); Monocytes % (auto) 7.4 %; Neutrophils # (auto) 5.13 K/uL (1.4-6.5); Neutrophils % (auto) 64.1 %; Platelet Count 191 K/uL (130-400); RDW Coefficient of Variation 13.7 % (11.5-14.5); RDW Standard Deviation 48.9 fL (36.4-46.3); Red Blood Count 4.94 M/uL (4.7-6.1); White Blood Count 8.01 K/uL (4.8-10.8)
[2021-07-07 12:59] LABS: INR 1.1 (0.9-1.1); Partial Thromboplastin Ratio 0.8; Prothrombin Time 11.2 Seconds (9.0-12.0)
--- NOTE | 2021-07-07 13:01 | XRay Report ---
XR chest 1V portable HISTORY: 70 years-old Male Chest Pain acute atypical chest pain COMPARISON: Chest radiograph 11/08/2020 TECHNIQUE: Portable AP view of the chest FINDINGS: The right axilla is enlarged. Battery pack projects over the left chest with leads projected over the left neck. No pneumothorax, pleural effusion, airspace consolidation or overt pulmonary edema. Degen erative changes of the shoulders and spine. IMPRESSION: Cardiomegaly without acute process. ACT 112: Negative or not required by law. The above report was generated using voice recognition software. It may contain grammatical, syntax o r spelling errors. Electronically signed by: Gianni Wells M.D. 07/07/2021 12:59 PM
[2021-07-07] MEDS ORDERED: OPTIRAY 320 125ml IV ONE (13:27)
--- NOTE | 2021-07-07 13:41 | CT Scan Report ---
CT angio chest dissec wo/w con HISTORY: 70 years-old Male chest and back pain acute chest and back pain COMPARISON: CT abdomen pelvis 05/29/2021, chest CT 11/19/2018 TECHNIQUE: CTA of the chest was obtained both with and without the use of 120 mL Optiray 320. 3-D cor onal and sagittal MIPS were obtained from the axial data set and were submitted for review. All measu rements were obtained according to NASCET criteria. A dose lowering technique was used consistent wit h the principals masoud MAYER. FINDINGS: CTA: Mild cardiomegaly. Trace pericardial effusion. No thoracic aortic aneurysm or dissection. No mediasti nal hematoma. Battery pack of the left chest wall is noted with stimulator leads extending superiorly along the left neck outside the [id number]. Extensive bilateral pulmonary emboli with saddle embo sheldon. There is evidence of right heart strain with straightening of the intraventricular septum. CT CHEST: Unremarkable thyroid. No pathologically enlarged lymph nodes. Trace right pleural effusion. No pneumo thorax. Mild subsegmental right basilar atelectasis. No pulmonary infarct, suspicious pulmonary nodul e or mass. No overt pulmonary edema. The central airways are patent. Mild distention of the gallbladder. Stable right adrenal nodule. Mild fecal retention. Unremarkable s oft tissues. Degenerative changes of the shoulders and spine. No acute fracture. IMPRESSION: 1. Extensive pulmonary emboli with saddle embolus. Additionally, there is evidence of right heart str ain. 2. Trace right pleural effusion with mild subsegmental right basilar atelectasis. 3. No acute aortic pathology. 4. Chronic findings as above. ACT 112: Negative or not required by law. The above report was generated using voice recognition software. It may contain grammatical, syntax o r spelling errors. Electronically signed by: Gianni Wells M.D. 07/07/2021 1:39 PM
[2021-07-07] MEDS ORDERED: Heparin IV Adult Wt-Based Standard WITH Bolus Protocol IV STA (13:44)
[2021-07-07] MEDS ORDERED: HEPARIN SOD (PORCINE) 1000 UNIT/ML IV ONE (13:59)
--- NOTE | 2021-07-07 14:23 | History & Physical Report ---
Date of Service July 07, 2021 Assessment & Plan (1) Pulmonary embolism, bilateral: Plan: Presents with acute chest pain and acute respiratory failure with hypoxia, found to have extensive PEs and saddle embolus on CTA Chest. With a h/o worsening mobility and sedentary lifestyle with progressive PD as well as a h/o testicular CA and ?prostate CA as risk factors although testicular CA is in remission sPESI score 3, troponin mildly elevated, with evidence on CT of RV strain, requiring 4LNC, BNP pending at time of admission, but hemodynamically stable (normal BP, not tachycardic) COVID test pending at time of admission, but is fully vaxxed and boosted Burlapper consulted by ED physician who did not recommend transfer for thrombolysis given patient was hemodynamically stable -admit to PCU for tele monitoring for arrhythmia -continue heparin gtt started in ED -plan for [facility] anticoagulation for at least 3-6 months-would consult with Dr. Marte of [facility]tico clinic for best choice for oral therapy in this situation, but likely could do DOAC after he demonstrates continued stability of his condition and is not in need of any sort of procedures -continue supplemental O2 to keep POx >90% -f/u proBNP -check ECHO for right heart strain -trend troponin -check Dopplers LEs--> if has large DVT, consider IVC filter given large clot burden already presents and risk for further decompensation should another event occur -morphine as needed for chest pain (2) Acute respiratory failure with hypoxia: Plan: secondary to PE as above continue supplemental O2 to keep POx>90% (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 follows with Oncology at [place] with surveillance CT scans and reportedly no recurrence or mets (4) Urge incontinence: Plan: continue Myrbetriq, finasteride, flomax (5) BPH loc w urin obs/LUTS: Plan: continue finasteride, flomax (6) Parkinson disease: Plan: with deep brain stim in place follows with Neuro at [place] continue Entacapone, Rytary 6x/day continue Mirapex mostly in wheelchair at SNF (7) Depression with anxiety: Plan: with significant anxiety component continue Effexor 225mg po daily, clonazepam bid prn, trazodone hs (8) Restless leg syndrome: Plan: continue Mirapex (9) GERD (gastroesophageal reflux disease): Plan: continue pepcid Plan: DVT proph-heparin gtt as above for VTE Dispo-admit to PCU, eventually back to [facility] where he is a [facility] resident DNR/DNI as per d/w patient, his daughter/HCPOA at the bedside, and as per review of paperwork from [place] History of Present Illness Chief Complaint: Chest pain Primary Care Provider: [facility] This patient is 70 history of testicular cancer status post radical orchiectomy, urinary incontinence, Parkinson's disease w/ DBS, depression with anxiety, RLS, BPH, GERD, and JYOTI not on CPAP who presents to the ED with sudden onset chest pain radiating through to the back today after sitting on the toilet having a BM. 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 His blood pressure initially on scene was 100/70 and pulse ox was 90% on 2 L. He does not typically use home O2 at his local [facility]. He received aspirin prior to arrival. No cough or fevers, but has persistent chest pain on arrival. He reports he has been much more sedentary the last few months, spending the majority of his time in a wheelchair due to his PD and difficulty with mobility. No previous h/o VTE. He has some chronic LE edema and wears compression stockings and does feel like he has had more pain behind the knees the last 1-2 months since being more sedentary in the wheelchair. In the ER, he was sent for a CTA chest which revealed extensive pulmonary emboli with saddle embolus and evidence of right heart strain. He was hemodynamically stable and ER consulted with Burlapper who said ok to remain in this facility and start heparin gtt. Allergies Allergy/AdvReac Type Severity Reaction Status Date / Time No Known Allergies Allergy Verified 07/07/21 13:36 Home Medications Medication Instructions Recorded Confirmed Type acetaminophen 325 mg tablet 650 mg PO Q4 PRN MDD 3g 01/27/19 07/07/21 History (Tylenol) bismuth subsalicylate 262 mg 2 tab PO Q6 PRN 01/27/19 07/07/21 History tablet (Pepto-Bismol) carbidopa ER 61.25 mg-levodopa 245 1 cap PO 6XD 11/08/20 07/07/21 History mg capsule,extended release (Rytary) clonazepam 0.5 mg tablet 0.5 mg PO BID PRN 11/08/20 07/07/21 History docosanol 10 % topical cream 1 applic TOPICAL 5XD PRN 11/08/20 07/07/21 History (Abreva) entacapone 200 mg tablet 200 mg PO 6XD 11/08/20 07/07/21 History finasteride 5 mg tablet 5 mg PO HS 11/08/20 07/07/21 History melatonin 5 mg tablet 5 mg PO HS 11/08/20 07/07/21 History methylcellulose (with sugar) oral 1 tbsp PO DAILY PRN 11/08/20 07/07/21 History powder polyethylene glycol 3350 17 17 g PO DAILY PRN 11/08/20 07/07/21 History gram/dose oral powder (Miralax) tamsulosin 0.4 mg capsule 0.4 mg PO HS 11/08/20 07/07/21 History trazodone 150 mg tablet 75 mg PO HS 11/08/20 07/07/21 History bisacodyl 10 mg rectal suppository 10 mg TN DAILY PRN 07/07/21 07/07/21 History camphor 11 %-menthol 16 % topical 1 applic TOPICAL Q4H 07/07/21 07/07/21 History cream (Icy Hot Advanced Relief) cholecalciferol (vitamin D3) 50 50 mcg PO DAILY 07/07/21 07/07/21 History mcg (2,000 unit) capsule (Vitamin D3) famotidine 20 mg tablet 20 mg PO DAILY 07/07/21 07/07/21 History magnesium hydroxide 400 mg/5 mL 30 ml PO DAILY 07/07/21 07/07/21 History oral suspension (Milk of Magnesia) mirabegron 50 mg tablet,extended 50 mg PO DAILY 07/07/21 07/07/21 History release 24 hr (Myrbetriq) pramipexole 0.75 mg 0.75 mg PO HS 07/07/21 07/07/21 History tablet,extended release 24 hr sodium phosphates 19 gram-7 0 ml TN DAILY PRN 07/07/21 07/07/21 History gram/118 mL enema (Fleet Enema) venlafaxine 150 mg 150 mg PO DAILY 07/07/21 07/07/21 History capsule,extended release 24 hr venlafaxine 75 mg capsule,extended 75 mg PO DAILY 07/07/21 07/07/21 History release 24 hr Past Med/Surg History Medical History (Updated 07/07/21 @ 15:39 by Kaylie Dacosta MD) Benign prostate hyperplasia BPH loc w urin obs/LUTS Depression with anxiety GERD (gastroesophageal reflux disease) Nephrolithiasis Parkinson disease Restless leg syndrome Seminoma of right testis Testicular cancer Urge incontinence Surgical History History of orchiectomy (~2017) seminoma, right S/P deep brain stimulator placement Family History Brother Lymphoma Mother Breast cancer Son Malignant neoplasm of testis Social History Smoking Status: Never smoker Hx Alcohol Use: No Hx Substance Use: No Feels Safe at Home: Yes Review of Systems Review of Systems: All systems reviewed & are unremarkable except as noted in HPI & below No fevers, chills. Does get headaches from time to time, treats with Tylenol Has issues with gas and constipation Decreased mobility Physical Exam Constitutional: WD/WN, vitals as above Eyes: PERRL, conjunctivae normal, anicteric sclerae ENMT: external ear and nose normal, oropharynx normal Neck: trachea midline, no thyromegaly Respiratory: normal respiratory effort, lungs clear to auscultation Cardiovascular: Rate/Rhythm: regular rate and regular rhythm Heart Sounds: no murmur Extremities: + edema (trace-1+ pitting edema legs R>L) Chest (Breasts): Additional Comments: implant subcutaneously left anterior chest wall Gastrointestinal (Abdomen): normal bowel sounds, soft, nontender, no hepatosplenomegaly Musculoskeletal: Extremities: extremities normal to inspection; no cyanosis and no clubbing Skin: no rashes, warm and dry Neurologic: moves all extremities and awake Masked facies CN 2-12 grossly intact extremities with rigidity Psychiatric: Orientation: alert and oriented x 3 Mood: + anxious mood Results & Data Results & Data ([facility]) Vital Signs (Past 12 Hours) Vital Signs Pulse Resp BP Pulse Ox 07/07/21 12:50 79 18 112/48 L 96 Laboratory Results 07/07/21 07/07/21 07/07/21 Range/Units 13:58 13:57 12:37 WBC (4.8-10.8) K/uL RBC (4.7-6.1) M/uL Hgb (14.0-18.0) g/dL Hct (42-52) % MCV (80-100) fL MCH (25-34) pg MCHC (32-36) g/dL RDW Std Deviation (36.4-46.3) fL RDW Coeff of Vaughn (11.5-14.5) % Plt Count (130-400) K/uL MPV (7.4-10.4) fL Immature Gran % (Auto) % Neut % (Auto) % Lymph % (Auto) % [place] % (Auto) % Eos % (Auto) % Baso % (Auto) % Neut # (Auto) (1.4-6.5) K/uL Lymph # (Auto) (1.2-3.4) K/uL Ren[place] # (Auto) (0.11-0.59) K/uL Eos # (Auto) (0-0.5) K/uL Baso # (Auto) (0-0.2) K/uL Immature Gran # (Auto) (0.00-0.02) K/uL PT 11.2 (9.0-12.0) Seconds INR 1.1 (0.9-1.1) APTT 21.0 (21.0-31.0) Seconds PTT Ratio 0.8 D-Dimer 63584 H* (0-500) ug/L FEU Sodium 135 L Potassium 4.2 Chloride 106 Carbon Dioxide 24 Anion Gap 5 BUN 22 Creatinine 1.38 Est Cr Clr Drug Dosing 64.6 Est GFR ( Amer) 60.0 Est GFR (Non-Af Amer) 51.8 BUN/Creatinine Ratio 15.9 Glucose 99 Calcium 9.4 Total Bilirubin 0.9 AST 12 L ALT 3 L Alkaline Phosphatase 67 Troponin I Pending Total Protein 6.5 Albumin 3.8 Globulin 2.7 Albumin/Globulin Ratio 1.4 07/07/21 07/07/21 Range/Units 12:37 12:37 WBC 8.01 (4.8-10.8) K/uL RBC 4.94 (4.7-6.1) M/uL Hgb 16.3 (14.0-18.0) g/dL Hct 48.2 (42-52) % MCV 97.6 (80-100) fL MCH 33.0 (25-34) pg MCHC 33.8 (32-36) g/dL RDW Std Deviation 48.9 H (36.4-46.3) fL RDW Coeff of Vaughn 13.7 (11.5-14.5) % Plt Count 191 (130-400) K/uL MPV 11.6 H (7.4-10.4) fL Immature Gran % (Auto) 0.1 % Neut % (Auto) 64.1 % Lymph % (Auto) 27.1 % Ren[place] % (Auto) 7.4 % Eos % (Auto) 1.1 % Baso % (Auto) 0.2 % Neut # (Auto) 5.13 (1.4-6.5) K/uL Lymph # (Auto) 2.17 (1.2-3.4) K/uL Ren[place] # (Auto) 0.59 (0.11-0.59) K/uL Eos # (Auto) 0.09 (0-0.5) K/uL Baso # (Auto) 0.02 (0-0.2) K/uL Immature Gran # (Auto) 0.01 (0.00-0.02) K/uL PT (9.0-12.0) Seconds INR (0.9-1.1) APTT (21.0-31.0) Seconds PTT Ratio D-Dimer (0-500) ug/L FEU Sodium Cancelled Potassium Cancelled Chloride Cancelled Carbon Dioxide Cancelled Anion Gap Cancelled BUN Cancelled Creatinine Cancelled Est Cr Clr Drug Dosing Cancelled Est GFR ( Amer) Cancelled Est GFR (Non-Af Amer) Cancelled BUN/Creatinine Ratio Cancelled Glucose Cancelled Calcium Cancelled Total Bilirubin Cancelled AST Cancelled ALT Cancelled Alkaline Phosphatase Cancelled Troponin I Cancelled Total Protein Cancelled Albumin Cancelled Globulin Cancelled Albumin/Globulin Ratio Cancelled Diagnostic Findings CT chest and CXR images personally reviewed by me and agree with the following reports: Chest X-Ray 07/07/21 12:29 XR chest 1V portable HISTORY: 70 years-old Male Chest Pain acute atypical chest pain COMPARISON: Chest radiograph 11/08/2020 TECHNIQUE: Portable AP view of the chest FINDINGS: The right axilla is enlarged. Battery pack projects over the left chest with leads projected over the left neck. No pneumothorax, pleural effusion, airspace consolidation or overt pulmonary edema. Degenerative changes of the shoulders and spine. IMPRESSION: Cardiomegaly without acute process. ACT 112: Negative or not required by law. The above report was generated using voice recognition software. It may contain grammatical, syntax or spelling errors. Electronically signed by: Gianni Wells M.D. 07/07/2021 12:59 PM Chest CTA 07/07/21 12:37 CT angio chest dissec wo/w con HISTORY: 70 years-old Male chest and back pain acute chest and back pain COMPARISON: CT abdomen pelvis 05/29/2021, chest CT 11/19/2018 TECHNIQUE: CTA of the chest was obtained both with and without the use of 120 mL Optiray 320. 3-D coronal and sagittal MIPS were obtained from the axial data set and were submitted for review. All measurements were obtained according to N ASCET criteria. A dose lowering technique was used consistent with the principals of LEYLA. FINDINGS: CTA: Mild cardiomegaly. Trace pericardial effusion. No thoracic aortic aneurysm or dissection. No mediastinal hematoma. Battery pack of the left chest wall is noted with stimulator leads extending superiorly along the left neck outside the [id number]. Extensive bilateral pulmonary emboli with saddle embolus. There is evidence of right heart strain with straightening of the intraventricular septum. CT CHEST: Unremarkable thyroid. No pathologically enlarged lymph nodes. Trace right pleur al effusion. No pneumothorax. Mild subsegmental right basilar atelectasis. No pulmonary infarct, suspicious pulmonary nodule or mass. No overt pulmonary edema. The central airways are patent. Mild distention of the gallbladder. Stable right adrenal nodule. Mild fecal retention. Unremarkable soft tissues. Degenerative changes of the shoulders and spine. No acute fracture. IMPRESSION: 1. Extensive pulmonary emboli with saddle embolus. Additionally, there is evidence of right heart strain. 2. Trace right pleural effusion with mild subsegmental right basilar atelectasis. 3. No acute aortic pathology. 4. Chronic findings as above. ACT 112: Negative or not required by law. The above report was generated using voice recognition software. It may contain grammatical, syntax or spelling errors. Electronically signed by: Gianni Wells M.D. 07/07/2021 1:39 PM ECG Additional Comments: ECG on 07/07/21 T 12:29 PM with NSR, rate 81, nonspecific TW abnormality in lateral leads Code Status & VTE Plan Code Status DNR/DNI VTE Prophylaxis Plan VTE Prophylaxis will be ordered: Yes PG Care Time/CCT Total # of Minutes Spent Total Time Spent with Patient: Total time spent is greater than 50% in coordination of care (as documented) at patient's floor/unit and/or counseling patient: Coding Level of Care Code 53878 Initial Inpt Care Lvl 3 Diagnoses Pulmonary embolism, bilateral I26.99 Seminoma of right testis C62.91 Urge incontinence N39.41 BPH loc w urin obs/LUTS N40.1 Parkinson disease G20 Depression with anxiety F41.8 Restless leg syndrome G25.81 Acute respiratory failure with hypoxia J96.01 GERD (gastroesophageal reflux disease) K21.9
[2021-07-07 14:30] LABS: D Dimer 20750 ug/L FEU (0-500)
[2021-07-07 14:31] LABS: Albumin Globulin Ratio 1.4 (0.9-2); Albumin Level 3.8 gm/dl (3.4-5.0); BUN Creatinine Ratio 15.9 (10-20); Bilirubin,Total 0.9 mg/dl (0.2-1.0); Calcium 9.4 mg/dl (8.5-10.1); Creatinine Clr Calc Pharmacy 64.6 ml/min; Est GFR (Non-African American) 51.8 ml/min; Globulin 2.7 gm/dl (2.5-4.0); Potassium 4.2 mmol/L (3.5-5.1); Total Protein 6.5 gm/dl (6.0-8.3)
[2021-07-07 14:53] LABS: Troponin I 0.64 ng/ml (0-0.04)
[2021-07-07] MEDS: HEPARIN SODIUM/DEXTROSE 25,000 UNITS/500 ML BAG IV SCH (15:14)
[2021-07-07] MEDS ORDERED: clonazePAM 0.5 MG TAB PO STA (15:24)
[2021-07-07] MEDS: Heparin IV Adult Wt-Based Standard WITH Bolus Protocol IV SCH (15:34)
[2021-07-07 16:11] LABS: Influenza A virus by PCR Negative (Neg); Influenza B virus by PCR Negative (Neg); RSV by PCR Negative (Neg); SARS CoV2 RNA(COVID-19) InHosp NEGATIVE (Negative)
--- NOTE | 2021-07-07 17:27 | Ultrasound Report ---
BILATERAL LOWER EXTREMITY VENOUS DOPPLER HISTORY: Acute pulmonary emboli saddle embolus,assess for DVT COMPARISON STUDY: CTA chest of same day FINDINGS: No left lower extremity DVT. Left-sided Saleem's cyst measures 5.7 x 4.7 x 3.0 cm. No acute occlusive deep venous thrombi are identified. Chronic appearing nonocclusive thrombi are noted at the profunda femoris and superficial femoral artery confluence and also within the distal superficial fe moral vein. IMPRESSION: 1. Chronic appearing nonocclusive thrombi of the right lower extremity. 2. No left lower extremity DVT. ACT 112: Negative or not required by law. Electronically signed by: Gianni Wells M.D. 07/07/2021 5:26 PM
[2021-07-07] MEDS ORDERED: METHYLCELLULOSE PO PRN (18:08)
[2021-07-07] MEDS ORDERED: ONDANSETRON INJ 2 MG/ML 2 ML VIAL IV PRN (18:08)
[2021-07-07] MEDS ORDERED: clonazePAM 0.5 MG TAB PO PRN (18:08)
[2021-07-07] MEDS ORDERED: [UNRECOGNIZED DRUG - OTHER] PO PRN (18:08)
[2021-07-07] MEDS ORDERED: MoRPHine SULFATE 2 MG/ML CARP IV PRN (18:08)
[2021-07-07] MEDS ORDERED: bisacodyL 10 MG SUPP PR PRN (18:08)
[2021-07-07] MEDS ORDERED: NON-FORMULARY MEDICATION (Camphor-Menthol [Icy Hot Advanced Relief] 11-16 % Cream) TOP PRN (18:08)
[2021-07-07] MEDS ORDERED: POLYETHYLENE (MIRALAX) 17 GM PACK PO PRN (18:08)
[2021-07-07] MEDS: traZODone HCL 50 MG TAB PO SCH (19:54)
[2021-07-07] MEDS: TAMSULOSIN HCL 0.4 MG CAP PO SCH (19:54)
[2021-07-07] MEDS: MELATONIN 3 MG TAB PO SCH (19:54)
[2021-07-07] MEDS: FINASTERIDE 5 MG TAB PO SCH (19:55)
[2021-07-07] MEDS ORDERED: ENTACAPONE 200 MG TAB PO SCH (20:00)
[2021-07-07 20:35] LABS: Partial Thromboplastin Ratio 3.4
[2021-07-07 20:54] LABS: Partial Thromboplastin Time 88.2 Seconds (21.0-31.0)
[2021-07-08] MEDS: Heparin IV Adult Wt-Based Standard WITH Bolus Protocol IV SCH (02:00)
[2021-07-08 04:40] LABS: Basophils # (auto) 0.03 K/uL (0-0.2); Basophils % (auto) 0.3 %; Eosinophils # (auto) 0.07 K/uL (0-0.5); Eosinophils % (auto) 0.8 %; Hematocrit (blood only) 47.6 % (42-52); Hemoglobin 16.2 g/dL (14.0-18.0); Immature Granulocytes # (auto) 0.02 K/uL (0.00-0.02); Immature Granulocytes % (auto) 0.2 %; Lymphocytes # (auto) 1.85 K/uL (1.2-3.4); Lymphocytes % (auto) 21.4 %; Mean Corpuscular Hemoglobin 32.6 pg (25-34); Mean Corpuscular Volume 95.8 fL (80-100); Mean Platelet Volume 10.4 fL (7.4-10.4); Monocytes # (auto) 0.83 K/uL (0.11-0.59); Monocytes % (auto) 9.6 %; Neutrophils # (auto) 5.83 K/uL (1.4-6.5); Neutrophils % (auto) 67.7 %; Platelet Count 173 K/uL (130-400); RDW Coefficient of Variation 13.5 % (11.5-14.5); RDW Standard Deviation 47.1 fL (36.4-46.3); Red Blood Count 4.97 M/uL (4.7-6.1); White Blood Count 8.63 K/uL (4.8-10.8)
[2021-07-08 05:04] LABS: Troponin I 0.58 ng/ml (0-0.04)
[2021-07-08 05:07] LABS: Albumin Globulin Ratio 1.5 (0.9-2); Bilirubin,Total 0.9 mg/dl (0.2-1.0); Calcium 9.5 mg/dl (8.5-10.1); Creatinine Clr Calc Pharmacy 76.8 ml/min; Est GFR (African American) 74.1 ml/min; Est GFR (Non-African American) 63.9 ml/min; Globulin 2.7 gm/dl (2.5-4.0); Total Protein 6.7 gm/dl (6.0-8.3)
[2021-07-08] MEDS: RYTARY PO SCH ×6 (05:08→19:16)
[2021-07-08] MEDS: ENTACAPONE 200 MG TAB PO SCH ×6 (05:08→19:16)
[2021-07-08 05:10] LABS: Partial Thromboplastin Ratio 2.3
[2021-07-08 05:21] LABS: Partial Thromboplastin Time 59.2 Seconds (21.0-31.0)
[2021-07-08] MEDS: MIRABEGRON ER 25 MG TAB PO SCH (07:48)
[2021-07-08] MEDS: VENLAFAXINE HCL XR 150 MG CAPXR PO SCH (07:50)
[2021-07-08] MEDS: VENLAFAXINE HCL XR 75 MG CAPXR PO SCH (07:50)
[2021-07-08] MEDS: MAGNESIUM HYDROXIDE SUSP 30 ML UDC PO SCH ×3 (07:51→10:31)
[2021-07-08] MEDS: CHOLECALCIFEROL 1,000 UNITS 25 MCG TAB PO SCH (07:51)
[2021-07-08] MEDS: FAMOTIDINE 20 MG TAB PO SCH (07:51)
[2021-07-08] MEDS ORDERED: clonazePAM 0.5 MG TAB PO SCH (09:00)
[2021-07-08] MEDS ORDERED: clonazePAM 0.5 MG TAB PO PRN (09:02)
--- NOTE | 2021-07-08 10:21 | Electrocardiogram Report ---
Test Reason : Blood Pressure : / mmHG Vent. Rate : 081 BPM Atrial Rate : 080 BPM P-R Int : 000 ms QRS Dur : 104 ms QT Int : 378 ms P-R-T Axes : 000 066 -12 degrees QTc Int : 439 ms Poor data quality, interpretation may be adversely affected Sinus rhythm Nonspecific ST and T wave abnormality Abnormal ECG When compared with ECG of 13-NOV-2016 19:02, Nonspecific T wave abnormality, worse in Lateral leads Confirmed by Del Marks ([id number]) on 07/08/2021 10:20:52 AM Referred By: Confirmed By:Christian Marks
[2021-07-08] MEDS: HEPARIN SODIUM/DEXTROSE 25,000 UNITS/500 ML BAG IV SCH (10:22)
[2021-07-08] MEDS: clonazePAM 0.25 MG TAB PO SCH ×2 (10:29→15:55)
[2021-07-08 10:49] LABS: iSTAT Blood Urea Nitrogen 34 mg/dl (7-18); iSTAT Carbon Dioxide 27 mmol/L (24-31); iSTAT Chloride 104 mmol/L (101-112); iSTAT Creatinine 1.5 mg/dl (0.6-1.3); iSTAT Glucose 125 mg/dl (70-99); iSTAT Hematocrit 49 % (42-52); iSTAT Hemoglobin 16.7 g/dl (14.0-18.0); iSTAT Potassium > 9.0 mmol/L (3.3-5.0); iSTAT Sodium 135 mmol/L (135-144)
--- NOTE | 2021-07-08 12:21 | XCELERA ---
[id number]
--- NOTE | 2021-07-08 13:14 | Hospitalist Progress Note ---
Date of Service July 08, 2021 Assessment & Plan (1) Pulmonary embolism, bilateral: Plan: Presents with acute chest pain and acute respiratory failure with hypoxia, found to have extensive PEs and saddle embolus on CTA Chest. 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 Marte re: AC choice but anticipate transition to DOAC after he demonstrates continued stability of his condition and is not in need of any sort of procedures Continue supplemental O2 to keep POx >90% Echo ordered and completed on 07/07, results as noted above Troponin mildly elevated at 0.97, follow-up troponin trending down at 0.58consistent with type II demand ischemia in setting of bilateral PE with hypoxia Bilateral lower extremity venous Dopplers completed, chronic-appearing multiple nonocclusive thrombi throughout RLE likely source of PE, IVC filter may be of benefit to prevent further insults Morphine ordered as needed for chest pain (2) Acute respiratory failure with hypoxia: Plan: Secondary to PE as above Continue supplemental O2 to keep POx>90% (3) Seminoma of right testis: Plan: In remission s/p radical orchiectomy in 2017 Follows with Oncology at [place] with surveillance CT scans and reportedly no recurrence or mets (4) Urge incontinence: Plan: Continue Myrbetriq, finasteride, flomax (5) BPH loc w urin obs/LUTS: Plan: Continue finasteride, flomax (6) Parkinson disease: Plan: With deep brain stim in place Follows with Neuro at [place] Continue Entacapone, Rytary 6x/day Continue Mirapex Mostly in wheelchair at SNF Consult PT/OT (7) Depression with anxiety: Plan: with significant anxiety component Continue Effexor 225mg po daily, clonazepam (unusual dose schedule but ordered as he takes at [facility]), and trazodone hs (8) Restless leg syndrome: Plan: Continue Mirapex (9) GERD (gastroesophageal reflux disease): Plan: Continue pepcid Plan: DVT proph-heparin gtt as above for VTE Dispo-admit to PCU, eventually back to [facility] where he is a [facility] not[facility] resident DNR/DNI as per d/w patient, his daughter/HCPOA at the bedside, and as per review of paperwork from [place] Admission and Anticipated Discharge Date Admission Date: July 07, 2021 Subjective Patient seen on rounds today. He was hospitalized with acute bilateral PE with saddle embolus. He was felt not to warrant thrombolytics d/t his hemodynamic stability and is currently being treated w/ Heparin gtt. He denies chest pain. Feels that his breathing is improving. Verbalizes no other complaints/concerns at present. He has been weaned down to 2 L of supplemental oxygen. Review of Systems Review of Systems: CONSTITUTIONAL: Denies weight loss/gain, fever and chills, fatigue, malaise, generalized weakness. HEENT: Denies changes in vision and hearing. RESPIRATORY: Mild dyspnea. Denies cough, wheezing. CV: Denies palpitations, CP, lower extremity edema, orthopnea, PND. GI: Denies abdominal pain, nausea, vomiting and diarrhea. : Denies dysuria and urinary frequency, urgency, hesitancy. MUSCULOSKELETAL: Denies myalgia and joint pain. SKIN: Denies rash and pruritus. NEUROLOGICAL: Denies headache, syncope, focal weakness, numbness, tingling. PSYCHIATRIC: Denies recent changes in mood. Denies anxiety and depression. Physical Exam Physical Exam: GENERAL: 70 yo well-developed, well-nourished WM. NAD. LUNGS: Nonlabored, good air exchange but diminished throughout. CARDIOVASCULAR: Regular rate and rhythm. No M/G/R. No JVD. ABDOMEN: Soft, non-tender and non-distended. BS normal x 4 quad. EXTREMITIES: Trace edema R>L. Non-tender. Peripheral pulses +2/4. NEUROLOGIC: A&O x3. PSYCHIATRIC: Cooperative. Appropriate mood and affect. SKIN: Warm, dry, intact. No rashes or lesions. Results & Data Results & Data ([facility]) Vital Signs (Past 12 Hours) Vital Signs Temp Pulse Resp BP Pulse Ox 07/08/21 12:13 36.5 C 64 16 111/71 92 07/08/21 10:38 36.5 C 62 16 112/71 95 07/08/21 07:10 36.4 C L 60 16 107/69 93 07/08/21 03:15 36.6 C 62 18 148/90 H 93 Laboratory Results 07/08/21 04:25 07/08/21 04:25 Diagnostic Findings BILATERAL LOWER EXTREMITY VENOUS DOPPLER HISTORY: Acute pulmonary emboli saddle embolus,assess for DVT COMPARISON STUDY: CTA chest of same day FINDINGS: No left lower extremity DVT. Left-sided Saleem's cyst measures 5.7 x 4.7 x 3.0 cm. No acute occlusive deep venous thrombi are identified. Chronic appearing nonocclusive thrombi are noted at the profunda femoris and superficial femoral artery confluence and also within the distal superficial femoral vein. IMPRESSION: 1. Chronic appearing nonocclusive thrombi of the right lower extremity. 2. No left lower extremity DVT. ACT 112: Negative or not required by law. Echocardiogram (performed 07/07/21) Left ventricular systolic function is normal. There is mild concentric left ventricular hypertrophy. The right ventricle is mildly dilated. There is moderate tricuspid regurgitation. Right ventricular systolic pressure is elevated at 50 to 60 mmHg. PG Care Time/CCT Total # of Minutes Spent Total Time Spent with Patient: Total time spent is greater than 50% in coordination of care (as documented) at patient's floor/unit and/or counseling patient: Coding Level of Care Code 79087 Subseq Hosp Care Lvl 3 Diagnoses Pulmonary embolism, bilateral I26.99 Acute respiratory failure with hypoxia J96.01 Seminoma of right testis C62.91 Urge incontinence N39.41 BPH loc w urin obs/LUTS N40.1 Parkinson disease G20 Depression with anxiety F41.8 Restless leg syndrome G25.81 GERD (gastroesophageal reflux disease) K21.9
[2021-07-08] MEDS: DICLOFENAC SOD 1% GEL 100 GM TUBE EXT PRN (15:29)
[2021-07-08] MEDS: MELATONIN 3 MG TAB PO SCH (21:15)
[2021-07-08] MEDS: traZODone HCL 50 MG TAB PO SCH (21:15)
[2021-07-08] MEDS: FINASTERIDE 5 MG TAB PO SCH (21:16)
[2021-07-08] MEDS: TAMSULOSIN HCL 0.4 MG CAP PO SCH (21:16)
[2021-07-08] MEDS: clonazePAM 0.5 MG TAB PO SCH (21:19)
[2021-07-09] MEDS: clonazePAM 0.25 MG TAB PO PRN (02:07)
[2021-07-09] MEDS: HEPARIN SODIUM/DEXTROSE 25,000 UNITS/500 ML BAG IV SCH ×2 (03:15→20:00)
[2021-07-09] MEDS: ENTACAPONE 200 MG TAB PO SCH ×6 (05:26→20:06)
[2021-07-09] MEDS: RYTARY PO SCH ×6 (05:26→20:04)
[2021-07-09] MEDS: DICLOFENAC SOD 1% GEL 100 GM TUBE EXT PRN (05:40)
[2021-07-09 07:12] LABS: Basophils # (auto) 0.03 K/uL (0-0.2); Basophils % (auto) 0.4 %; Eosinophils # (auto) 0.15 K/uL (0-0.5); Eosinophils % (auto) 2.1 %; Hemoglobin 15.6 g/dL (14.0-18.0); Immature Granulocytes # (auto) 0.02 K/uL (0.00-0.02); Immature Granulocytes % (auto) 0.3 %; Lymphocytes # (auto) 1.61 K/uL (1.2-3.4); Lymphocytes % (auto) 22.1 %; Mean Corpuscular Hemoglobin 32.5 pg (25-34); Mean Corpuscular Hgb Conc 33.9 g/dL (32-36); Mean Corpuscular Volume 95.8 fL (80-100); Mean Platelet Volume 10.5 fL (7.4-10.4); Monocytes # (auto) 0.66 K/uL (0.11-0.59); Monocytes % (auto) 9.1 %; Neutrophils # (auto) 4.81 K/uL (1.4-6.5); Platelet Count 167 K/uL (130-400); RDW Coefficient of Variation 13.4 % (11.5-14.5); RDW Standard Deviation 47.6 fL (36.4-46.3); White Blood Count 7.28 K/uL (4.8-10.8)
[2021-07-09 07:36] LABS: BUN Creatinine Ratio 22.8 (10-20); Calcium 9.1 mg/dl (8.5-10.1); Est GFR (Non-African American) 59.5 ml/min; Potassium 4.1 mmol/L (3.5-5.1)
[2021-07-09 07:40] LABS: Partial Thromboplastin Ratio 2.3
[2021-07-09 07:48] LABS: Partial Thromboplastin Time 59.3 Seconds (21.0-31.0)
[2021-07-09] MEDS: VENLAFAXINE HCL XR 75 MG CAPXR PO SCH (09:15)
[2021-07-09] MEDS: MIRABEGRON ER 25 MG TAB PO SCH (09:15)
[2021-07-09] MEDS: CHOLECALCIFEROL 1,000 UNITS 25 MCG TAB PO SCH (09:15)
[2021-07-09] MEDS: FAMOTIDINE 20 MG TAB PO SCH (09:16)
[2021-07-09] MEDS: VENLAFAXINE HCL XR 150 MG CAPXR PO SCH (09:16)
--- NOTE | 2021-07-09 11:03 | Hospitalist Progress Note ---
Date of Service July 09, 2021 Assessment & Plan (1) Pulmonary embolism, bilateral: Plan: Presents with acute chest pain and acute respiratory failure with hypoxia, found to have extensive PEs and saddle embolus on CTA Chest. With a h/o worsening mobility and sedentary lifestyle with progressive PD as well as a h/o testicular CA and ?prostate CA as risk factors although testicular CA is in remission sPESI score 3, troponin mildly elevated, with evidence on CT of RV strain, requiring 4LNC, BNP 300, but HD stable (normal BP, not tachycardic) COVID test negative but is fully vaxxed and boosted Supervisor Assembly Room consulted by ED physician who did not recommend transfer for thrombolysis given patient was hemodynamically stable Continue PCU level of care Continue heparin gtt started in ED Plan for manager long term care anticoagulation for at least 3-6 months Per yadiel Gillette to transition to Eliquis upon discharge 10mg BID x 1 week then reduce dose to 5mg BID Wean O2 as able to maintain sat >90% Echo ordered and completed on 07/07, RV mildly dilated, mod TR, and RVSP elevated at 50-60mmHg Troponin mildly elevated at 0.97, follow-up troponin trending down at 0 .58consistent with type II demand ischemia in setting of bilateral PE with hypoxia Bilateral lower extremity venous Dopplers completed, chronic-appearing multiple nonocclusive thrombi throughout RLE likely source of PE, IVC filter may be of benefit to prevent further insults Morphine ordered as needed for chest pain Discussed with vascular surgery regarding need for IVC filter placement, formal consult placed, appreciate recommendations. 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 Follows with Oncology at [place] with surveillance CT scans and reportedly no recurrence or mets (5) Urge incontinence: Plan: Continue Myrbetriq, finasteride, flomax (6) BPH loc w urin obs/LUTS: Plan: Continue finasteride, flomax (7) Parkinson disease: Plan: With deep brain stim in place Follows with Neuro at [place] Continue Entacapone, Rytary 6x/day Continue Mirapex Mostly in wheelchair at SNF Continue PT/OT (8) Depression with anxiety: Plan: with significant anxiety component Continue Effexor 225mg po daily, clonazepam (unusual dose schedule but ordered as he takes at SNF), and trazodone hs (9) Restless leg syndrome: Plan: Continue Mirapex (10) GERD (gastroesophageal reflux disease): Plan: Continue pepcid Plan: Continue interventions as above Consult vascular surgery for anticipated placement of IVC filter Continue Heparin gtt with plans to transition to Eliquis upon discharge Follow up labs in AM Wean O2 Dispo--return to SNF @ [facility] when medically ready Admission and Anticipated Discharge Date Admission Date: July 07, 2021 Subjective Patient seen on rounds today. He was hospitalized with acute bilateral PE with saddle embolus. He was felt not to warrant thrombolytics d/t his hemodynamic stability and is currently being treated w/ Heparin gtt. He denies chest pain. Feels that his breathing is improving. Verbalizes no other complaints/concerns at present. Review of Systems Review of Systems: CONSTITUTIONAL: Denies weight loss/gain, fever and chills, fatigue, malaise, generalized weakness. HEENT: Denies changes in vision and hearing. RESPIRATORY: Denies cough, wheezing. CV: Denies palpitations, CP, lower extremity edema, orthopnea, PND. GI: Denies abdominal pain, nausea, vomiting and diarrhea. : Denies dysuria and urinary frequency, urgency, hesitancy. MUSCULOSKELETAL: Denies myalgia and joint pain. SKIN: Denies rash and pruritus. NEUROLOGICAL: Denies headache, syncope, focal weakness, numbness, tingling. PSYCHIATRIC: Denies recent changes in mood. Denies anxiety and depression. Physical Exam Physical Exam: GENERAL: 70 yo well-developed, well-nourished WM. NAD. LUNGS: Nonlabored, good air exchange but diminished throughout. CARDIOVASCULAR: Regular rate and rhythm. No M/G/R. No JVD. ABDOMEN: Soft, non-tender and non-distended. BS normal x 4 quad. EXTREMITIES: Trace edema R>L. Non-tender. Peripheral pulses +2/4. NEUROLOGIC: A&O x3. PSYCHIATRIC: Cooperative. Appropriate mood and affect. SKIN: Warm, dry, intact. No rashes or lesions. Results & Data Results & Data ([facility]) Vital Signs (Past 12 Hours) Vital Signs Temp Pulse Pulse Resp BP Pulse Ox 07/09/21 08:00 54 L 07/09/21 07:09 36.5 C 54 L 17 143/80 H 95 07/09/21 03:00 36.4 C L 50 L 16 122/77 96 07/09/21 00:00 51 L 07/08/21 23:58 36.3 C L 50 L 18 119/72 94 Laboratory Results 07/09/21 06:49 07/09/21 06:49 ECG Additional Comments: TELE: tachy on monitor but appears to be artifact, on exam is RRR PG Care Time/CCT Total # of Minutes Spent Total Time Spent with Patient: Total time spent is greater than 50% in coordination of care (as documented) at patient's floor/unit and/or counseling patient: Coding Level of Care Code 85537 Subseq Hosp Care Lvl 3 Diagnoses Pulmonary embolism, bilateral I26.99 Acute respiratory failure with hypoxia J96.01 Seminoma of right testis C62.91 Urge incontinence N39.41 BPH loc w urin obs/LUTS N40.1 Parkinson disease G20 Depression with anxiety F41.8 Restless leg syndrome G25.81 GERD (gastroesophageal reflux disease) K21.9 Deep vein thrombosis (DVT) of right lower extremity I82.401
[2021-07-09] MEDS: ACETAMINOPHEN 325 MG TAB PO PRN ×2 (11:41→16:14)
[2021-07-09] MEDS: MAGNESIUM HYDROXIDE SUSP 30 ML UDC PO SCH (11:43)
--- NOTE | 2021-07-09 12:20 | Communication Note ---
Date of Service: July 09, 2021 Patient's chart reviewed. Agree with anticoagulation and placement of vena cava filter due to his history of cancer and the significance of his pulmonary emboli. We will plan on placing the filter tomorrow. We will see him tomorrow when we are back in the hospital Thank you very much for letting us participate in the care of this patient..
[2021-07-09] MEDS: clonazePAM 0.5 MG TAB PO SCH (20:06)
[2021-07-09] MEDS: FINASTERIDE 5 MG TAB PO SCH (20:07)
[2021-07-09] MEDS: TAMSULOSIN HCL 0.4 MG CAP PO SCH (20:08)
[2021-07-09] MEDS: MELATONIN 3 MG TAB PO SCH (20:08)
[2021-07-09] MEDS: traZODone HCL 50 MG TAB PO SCH (20:09)
[2021-07-10] MEDS: RYTARY PO SCH ×6 (04:47→19:54)
[2021-07-10] MEDS: ENTACAPONE 200 MG TAB PO SCH ×6 (04:48→19:55)
[2021-07-10] MEDS: clonazePAM 0.25 MG TAB PO PRN ×2 (04:55→15:37)
[2021-07-10 06:20] LABS: Basophils # (auto) 0.03 K/uL (0-0.2); Basophils % (auto) 0.5 %; Eosinophils # (auto) 0.16 K/uL (0-0.5); Eosinophils % (auto) 2.5 %; Hematocrit (blood only) 44.6 % (42-52); Hemoglobin 15.1 g/dL (14.0-18.0); Immature Granulocytes # (auto) 0.01 K/uL (0.00-0.02); Immature Granulocytes % (auto) 0.2 %; Lymphocytes # (auto) 1.55 K/uL (1.2-3.4); Lymphocytes % (auto) 24.2 %; Mean Corpuscular Hemoglobin 32.3 pg (25-34); Mean Corpuscular Hgb Conc 33.9 g/dL (32-36); Mean Corpuscular Volume 95.5 fL (80-100); Mean Platelet Volume 10.6 fL (7.4-10.4); Monocytes # (auto) 0.55 K/uL (0.11-0.59); Monocytes % (auto) 8.6 %; Platelet Count 177 K/uL (130-400); RDW Coefficient of Variation 13.3 % (11.5-14.5); RDW Standard Deviation 46.2 fL (36.4-46.3); Red Blood Count 4.67 M/uL (4.7-6.1)
[2021-07-10 06:45] LABS: BUN Creatinine Ratio 19.2 (10-20); Calcium 9.1 mg/dl (8.5-10.1); Creatinine Clr Calc Pharmacy 85.4 ml/min; Est GFR (African American) 84.5 ml/min; Est GFR (Non-African American) 72.9 ml/min; Potassium 4.1 mmol/L (3.5-5.1)
[2021-07-10 06:54] LABS: Partial Thromboplastin Ratio 2.3
[2021-07-10 06:58] LABS: Partial Thromboplastin Time 60.6 Seconds (21.0-31.0)
[2021-07-10] MEDS: VENLAFAXINE HCL XR 75 MG CAPXR PO SCH (08:08)
[2021-07-10] MEDS: FAMOTIDINE 20 MG TAB PO SCH (08:08)
[2021-07-10] MEDS: CHOLECALCIFEROL 1,000 UNITS 25 MCG TAB PO SCH (08:08)
[2021-07-10] MEDS: VENLAFAXINE HCL XR 150 MG CAPXR PO SCH (08:09)
[2021-07-10] MEDS: MIRABEGRON ER 25 MG TAB PO SCH (08:09)
[2021-07-10] MEDS: MAGNESIUM HYDROXIDE SUSP 30 ML UDC PO SCH (08:10)
[2021-07-10] MEDS: clonazePAM 0.25 MG TAB PO SCH (08:10)
--- NOTE | 2021-07-10 08:59 | Consultation ---
Date of Consultation July 10, 2021 Assessment & Plan (1) Pulmonary embolism, bilateral: Pt with extensive BL PE and saddle embolus, arrived hypoxic and still requiring 2L O2. While BLE venous US does not demonstrate acute DVT, it is possible that pt developed pelvic thrombus that has not been visualized. Pt with signfiicant immobility d/t parkinson's dz and hx of ca. Pt discussed with Dr Iglesias, recommends IVC filter insertion in OR later today to prevent any further PE. Procedure, risks, benefits and alternatives disucssed with pt at Dr Iglesias's request. Pt expresses understanding and agreement. Also spoke with his daughter, Luann, at his request, she states she is ok with procedure if pt is agreeable. History of Present Illness Reason for Consultation: saddle PE Attending Physician: Singh Wagner DO History of Present Illness 70 yo m with hx of parkinson's dz, testicular ca, depression, BPH, restless leg syndrome, admitted with acute chest pain and hypoxia and found to have saddle PE, seen in consultation today for possible IVC filter insertion. Pt does not communicate well secondary to advanced parkinson's disease. Pt with general immobility and decreasing activity level. CTA chest demonstrated extensive PE load with saddle PE. Pt currently requiring 2L O2 via NC. Pt denies any leg pain or swelling. States chest pain and breathing improved. Denies any other complaints. BLE venous US demonstrates chronic nonocclusive DVT in RLE. Allergies Allergy/AdvReac Type Severity Reaction Status Date / Time No Known Allergies Allergy Verified 07/07/21 13:36 Home Medications Medication Instructions Recorded Confirmed Type acetaminophen 325 mg tablet 650 mg PO Q4 PRN MDD 3g 01/27/19 07/07/21 History (Tylenol) bismuth subsalicylate 262 mg 2 tab PO Q6 PRN 01/27/19 07/07/21 History tablet (Pepto-Bismol) carbidopa ER 61.25 mg-levodopa 245 1 cap PO 6XD 11/08/20 07/07/21 History mg capsule,extended release (Rytary) clonazepam 0.5 mg tablet 0.5 mg PO BID PRN 11/08/20 07/07/21 History docosanol 10 % topical cream 1 applic TOPICAL 5XD PRN 11/08/20 07/07/21 History (Abreva) entacapone 200 mg tablet 200 mg PO 6XD 11/08/20 07/07/21 History finasteride 5 mg tablet 5 mg PO HS 11/08/20 07/07/21 History melatonin 5 mg tablet 5 mg PO HS 11/08/20 07/07/21 History methylcellulose (with sugar) oral 1 tbsp PO DAILY PRN 11/08/20 07/07/21 History powder polyethylene glycol 3350 17 17 g PO DAILY PRN 11/08/20 07/07/21 History gram/dose oral powder (Miralax) tamsulosin 0.4 mg capsule 0.4 mg PO HS 11/08/20 07/07/21 History trazodone 150 mg tablet 75 mg PO HS 11/08/20 07/07/21 History bisacodyl 10 mg rectal suppository 10 mg MT DAILY PRN 07/07/21 07/07/21 History camphor 11 %-menthol 16 % topical 1 applic TOPICAL Q4H 07/07/21 07/07/21 History cream (Icy Hot Advanced Relief) cholecalciferol (vitamin D3) 50 50 mcg PO DAILY 07/07/21 07/07/21 History mcg (2,000 unit) capsule (Vitamin D3) famotidine 20 mg tablet 20 mg PO DAILY 07/07/21 07/07/21 History magnesium hydroxide 400 mg/5 mL 30 ml PO DAILY 07/07/21 07/07/21 History oral suspension (Milk of Magnesia) mirabegron 50 mg tablet,extended 50 mg PO DAILY 07/07/21 07/07/21 History release 24 hr (Myrbetriq) pramipexole 0.75 mg 0.75 mg PO HS 07/07/21 07/07/21 History tablet,extended release 24 hr sodium phosphates 19 gram-7 0 ml MT DAILY PRN 07/07/21 07/07/21 History gram/118 mL enema (Fleet Enema) venlafaxine 150 mg 150 mg PO DAILY 07/07/21 07/07/21 History capsule,extended release 24 hr venlafaxine 75 mg capsule,extended 75 mg PO DAILY 07/07/21 07/07/21 History release 24 hr Patient History Medical History Benign prostate hyperplasia BPH loc w urin obs/LUTS Depression with anxiety GERD (gastroesophageal reflux disease) Nephrolithiasis Parkinson disease Restless leg syndrome Seminoma of right testis Testicular cancer Urge incontinence Surgical History History of orchiectomy (~2017) seminoma, right S/P deep brain stimulator placement Family History Brother Lymphoma Mother Breast cancer Son Malignant neoplasm of testis Social History Smoking Status: Never smoker Second Hand Exposure: No; Do You Dip or Chew Tobacco: No; Tobacco Cessation Education Requested by Patient: No Hx Alcohol Use: No Hx Substance Use: No Preferred Language: Bulgarian Communication Ability: Effective Billet Cutter Required: No Beliefs That Will Affect Care: None Current Living Situation: Personal Care Facility Other Information That Helps Us Care for You: No Feels Safe at Home: Yes Safety Concerns: Feels Safe At This Time Assistive Devices: Oxygen - Continuous Review of Systems Review of Systems: All systems reviewed & are unremarkable except as noted in HPI & below (difficult to obtain d/t parkinsons dz.) Physical Exam Constitutional: WD/WN, vitals as above + physical limitations, cooperative and comfortable; not in distress Neck: trachea midline Respiratory: normal respiratory effort, lungs clear to auscultation Cardiovascular: Rate/Rhythm: regular rate and regular rhythm Vessels: posterior tibial pulses present, dorsalis pedis pulses present and radial pulses present; + abnormal peripheral pulses Extremities: normal capillary refill; no edema Gastrointestinal (Abdomen): Inspection/Auscultation: abdomen normal to inspection and normal bowel sounds Percussion/Palpation: abdomen soft; abdomen nontender Musculoskeletal: Extremities: + abnormal strength Skin: no rashes, warm and dry Neurologic: awake; not confused Speech / Cognition: + abnormal speech (pt has difficulty speaking chronically) Psychiatric: Orientation: alert and oriented x 3 Eye Contact: + fair eye contact Results & Data ([facility]) Vital Signs (Past 12 Hours) Vital Signs Temp Pulse Pulse Resp BP Pulse Ox 07/10/21 08:01 36.3 C L 54 L 18 129/68 93 07/10/21 04:08 36.5 C 53 L 18 132/83 94 02/22/22 23:24 36.4 C L 51 L 18 122/74 96 07/09/21 23:05 49 L
[2021-07-10] MEDS ORDERED: ceFAZolin 2000MG 2,000 MG/15 ML SYR IV ONE (09:00)
--- NOTE | 2021-07-10 11:35 | Hospitalist Progress Note ---
Date of Service July 10, 2021 Assessment & Plan (1) Pulmonary embolism, bilateral: Plan: Presents with acute chest pain and acute respiratory failure with hypoxia, found to have extensive PEs and saddle embolus on CTA Chest. With a h/o worsening mobility and sedentary lifestyle with progressive PD as well as a h/o testicular CA as risk factors although testicular CA is in remission sPESI score 3, troponin mildly elevated, with evidence on CT of RV strain, re quiring 4LNC, BNP 300, but HD stable (normal BP, not tachycardic) COVID test negative but is fully vaxxed and boosted Medical Aide consulted by ED physician who did not recommend transfer for thrombolysis given patient was hemodynamically stable Continue PCU level of care Continue heparin gtt started in ED Plan for retirement anticoagulation for at least 3-6 months Per yadiel Gillette to transition to Eliquis upon discharge 10mg BID x 1 week then reduce dose to 5mg BID Wean O2 as able to maintain sat >90% Echo ordered and completed on 07/07, RV mildly dilated, mod TR, and RVSP elevated at 50-60mmHg Troponin mildly elevated at 0.97, follow-up troponin trending down at 0.58consistent with type II demand ischemia in setting of bilateral PE with hypoxia Bilateral lower extremity venous Dopplers completed, chronic-appearing multiple nonocclusive thrombi throughout RLE likely source of PE Morphine ordered as needed for chest pain but has not needed it, will d/c For IVC filter placement today (2) Deep vein thrombosis (DVT) of right lower extremity: Plan: Chronic appearing and nonocclusive Vascular surgery consult for anticipated placement of IVC filter today (3) Acute respiratory failure with hypoxia: Plan: Secondary to PE as above Continue supplemental O2 to keep POx>90% (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 Follows with Oncology at [place] with surveillance CT scans and reportedly no recurrence or mets (5) Urge incontinence: Plan: Continue Myrbetriq, finasteride, flomax (6) BPH loc w urin obs/LUTS: Plan: Continue finasteride, flomax (7) Parkinson disease: Plan: With deep brain stim in place Follows with Neuro at [place] Continue Entacapone, Rytary 6x/day Continue Mirapex Mostly in wheelchair at SNF Continue PT/OT (8) Depression with anxiety: Plan: with significant anxiety component Continue Effexor 225mg po daily, clonazepam (unusual dose schedule but ordered as he takes at SNF), and trazodone hs (9) Restless leg syndrome: Plan: Continue Mirapex (10) GERD (gastroesophageal reflux disease): Plan: Continue pepcid Plan: Continue interventions as above For IVC filter placement today w/ Dr. Iglesias Continue Heparin gtt, start Eliquis tomorrow AM and then can d/c Heparin (allow slight overlap) Follow up labs in AM Wean O2 Dispo--return to SNF @ [facility], anticipate d/c tomorrow Admission and Anticipated Discharge Date Admission Date: July 07, 2021 Supervising Physician Co-Signing Physician Notes chart reviewed, case d/w William Moore PAC. as above Subjective Patient seen on rounds today. He was hospitalized with acute bilateral PE with saddle embolus. He was felt not to warrant thrombolytics d/t his hemodynamic stability and is currently being treated w/ Heparin gtt. He denies chest pain. Feels that his breathing is improving. Verbalizes no other complaints/concerns at present. Review of Systems Review of Systems: CONSTITUTIONAL: Denies weight loss/gain, fever and chills, fatigue, malaise, generalized weakness. HEENT: Denies changes in vision and hearing. RESPIRATORY: Denies cough, wheezing. CV: Denies palpitations, CP, lower extremity edema, orthopnea, PND. GI: Denies abdominal pain, nausea, vomiting and diarrhea. : Denies dysuria and urinary frequency, urgency, hesitancy. MUSCULOSKELETAL: Denies myalgia and joint pain. SKIN: Denies rash and pruritus. NEUROLOGICAL: Denies headache, syncope, focal weakness, numbness, tingling. PSYCHIATRIC: Denies recent changes in mood. Denies anxiety and depression. Physical Exam Physical Exam: GENERAL: 70 yo well-developed, well-nourished WM. NAD. LUNGS: Nonlabored, good air exchange but diminished throughout. CARDIOVASCULAR: Regular rate and rhythm. No M/G/R. No JVD. ABDOMEN: Soft, non-tender and non-distended. BS normal x 4 quad. EXTREMITIES: Trace edema R>L. Non-tender. Peripheral pulses +2/4. NEUROLOGIC: A&O x3. PSYCHIATRIC: Cooperative. Appropriate mood and affect. SKIN: Warm, dry, intact. No rashes or lesions. Results & Data Results & Data ([facility]) Vital Signs (Past 12 Hours) Vital Signs Temp Pulse Pulse Resp BP Pulse Ox 07/10/21 08:01 36.3 C L 54 L 18 129/68 93 07/10/21 07:00 53 L 07/10/21 04:08 36.5 C 53 L 18 132/83 94 Laboratory Results 07/10/21 05:19 07/10/21 05:19 PG Care Time/CCT Total # of Minutes Spent Total Time Spent with Patient: Total time spent is greater than 50% in coordination of care (as documented) at patient's floor/unit and/or counseling patient: Coding Level of Care Code 16396 Subseq Hosp Care Lvl 2 Diagnoses Pulmonary embolism, bilateral I26.99 Deep vein thrombosis (DVT) of right lower extremity I82.401 Acute respiratory failure with hypoxia J96.01 Seminoma of right testis C62.91 Urge incontinence N39.41 BPH loc w urin obs/LUTS N40.1 Parkinson disease G20 Depression with anxiety F41.8 Restless leg syndrome G25.81 GERD (gastroesophageal reflux disease) K21.9
[2021-07-10] MEDS: HEPARIN SODIUM/DEXTROSE 25,000 UNITS/500 ML BAG IV SCH (13:00)
[2021-07-10] MEDS ORDERED: ceFAZolin 2,000 MG/15 ML IV PUSH IV ONE (14:26)
[2021-07-10] MEDS ORDERED: MIDAZOLAM HCL 1 MG/ML 2ML VIAL ONE (14:53)
[2021-07-10] MEDS ORDERED: fentaNYL citrate 100 MCG/2 ML VIAL ONE (14:53)
--- NOTE | 2021-07-10 15:08 | Operative Report ---
Post Operative Report Pre & Post Diagnosis Operation Date: 07/10/21 14:20 Pre-Op Diagnosis: Signifacant Pulmonary Embolism, Right Heart Strain Post-Op Diagnosis: Signifacant Pulmonary Embolism, Right Heart Strain I identified the patient and participated in the time-out.: Yes Procedure Operation Date: 07/10/21 14:20 Actual Procedures p Insertion of Vena Cava Filter, right femoral approach, ultrasound localization of right femoral vein, fluorscopy for positioning(Right) - Dawson Iglesias MD Surgeon Dawson Iglesias MD Spin Tank Tender none Estimated Blood Loss 0 Findings Consistent with Post-Op Diagnosis Specimens none Anesthesia Type Local Complications none Disposition Accompanied Patient To Recovery: No Disposition: Recovery Room Indications This is a 70-year-old gentleman who has a history of DVT in the past. He came in with a large pulmonary saddle embolism with right heart strain. He has a history of a deep brain stimulator as well as testicular cancer. Due to the size of the embolism and the fact that he is not mobile due to his other medical problems and his parkinsonism a filter was recommended at this point. I have discussed the risks options and benefits of the procedure with the patien t. The patient understands the risks options and benefits and agrees to the procedure. Description of Procedure The patient was brought to the angio suite and placed in the supine position. The patient was identified and a timeout performed. The right groin was prepped and draped in the usual fashion. The right common femoral vein was located with ultrasound. It was patent, compressed easily, and had no filling defects. The vein was then punctured under ultrasound visualization. A guidewire was then passed centrally into the inferior vena cava under fluoroscopic guidance. The puncture site was then dilated and the filter sheath inserted. It was passed to the infra renal vena cava. A venacavagram was done which showed no cava clot a nd an acceptable size. The renal veins were identified. The filter was then passed through the sheath and deployed in the infra renal vena cava in an upright position. Satisfied with the positioning of the filter, the sheath was removed. Pressure was applied to the puncture site. Adequate hemostasis was obtained and a sterile dressing was applied. The patient left the operation room in satisfactory condition and tolerated the procedure well. All needle and sponge counts were correct at the end of the procedure. I attest to the content of the Intraoperative Record and any orders documented therein. Any exceptions are noted below.
[2021-07-10] MEDS ORDERED: VISIPAQUE IV PRN (15:35)
[2021-07-10] MEDS ORDERED: LIDOCAINE 1% LOCAL 20 ML VIAL INJ ONE (15:35)
[2021-07-10] MEDS: clonazePAM 0.5 MG TAB PO SCH (19:55)
[2021-07-10] MEDS: TAMSULOSIN HCL 0.4 MG CAP PO SCH (19:57)
[2021-07-10] MEDS: FINASTERIDE 5 MG TAB PO SCH (19:57)
[2021-07-10] MEDS: MELATONIN 3 MG TAB PO SCH (19:57)
[2021-07-10] MEDS: traZODone HCL 50 MG TAB PO SCH (19:58)
[2021-07-11] MEDS: ENTACAPONE 200 MG TAB PO SCH ×4 (04:40→14:13)
[2021-07-11] MEDS: HEPARIN SODIUM/DEXTROSE 25,000 UNITS/500 ML BAG IV SCH (04:40)
[2021-07-11] MEDS: RYTARY PO SCH ×4 (04:40→14:13)
[2021-07-11 06:29] LABS: Basophils # (auto) 0.03 K/uL (0-0.2); Basophils % (auto) 0.6 %; Eosinophils # (auto) 0.17 K/uL (0-0.5); Eosinophils % (auto) 3.3 %; Hematocrit (blood only) 42.1 % (42-52); Hemoglobin 14.6 g/dL (14.0-18.0); Immature Granulocytes # (auto) 0.02 K/uL (0.00-0.02); Immature Granulocytes % (auto) 0.4 %; Lymphocytes # (auto) 1.28 K/uL (1.2-3.4); Lymphocytes % (auto) 24.6 %; Mean Corpuscular Hgb Conc 34.7 g/dL (32-36); Monocytes # (auto) 0.52 K/uL (0.11-0.59); Neutrophils # (auto) 3.19 K/uL (1.4-6.5); Neutrophils % (auto) 61.1 %; Platelet Count 179 K/uL (130-400); RDW Coefficient of Variation 13.2 % (11.5-14.5); RDW Standard Deviation 46.1 fL (36.4-46.3); Red Blood Count 4.43 M/uL (4.7-6.1); White Blood Count 5.21 K/uL (4.8-10.8)
[2021-07-11 06:52] LABS: BUN Creatinine Ratio 16.5 (10-20); Calcium 8.8 mg/dl (8.5-10.1); Creatinine Clr Calc Pharmacy 82.5 ml/min; Est GFR (African American) 79.8 ml/min; Est GFR (Non-African American) 68.9 ml/min; Potassium 4.1 mmol/L (3.5-5.1)
[2021-07-11 07:08] LABS: Partial Thromboplastin Ratio 2.4
[2021-07-11 07:18] LABS: Partial Thromboplastin Time 63.2 Seconds (21.0-31.0)
[2021-07-11] MEDS: clonazePAM 0.25 MG TAB PO SCH (07:43)
[2021-07-11] MEDS ORDERED: APIXABAN 5 MG TABLET PO SCH (09:00)
[2021-07-11] MEDS: MIRABEGRON ER 25 MG TAB PO SCH (09:47)
[2021-07-11] MEDS: MAGNESIUM HYDROXIDE SUSP 30 ML UDC PO SCH (09:48)
[2021-07-11] MEDS: FAMOTIDINE 20 MG TAB PO SCH (09:48)
[2021-07-11] MEDS: CHOLECALCIFEROL 1,000 UNITS 25 MCG TAB PO SCH (09:49)
[2021-07-11] MEDS: VENLAFAXINE HCL XR 150 MG CAPXR PO SCH (09:57)
[2021-07-11] MEDS: VENLAFAXINE HCL XR 75 MG CAPXR PO SCH (09:57)
--- NOTE | 2021-07-11 12:12 | Discharge Summary ---
Date of Service July 11, 2021 Admission HPI Per Admitting Provider This patient is 70 history of testicular cancer status post radical orchiectomy, urinary incontinence, Parkinson's disease w/ DBS, depression with anxiety, RLS, BPH, GERD, and JYOTI not on CPAP who presents to the ED with sudden onset chest pain radiating through to the back today after sitting on the toilet having a BM. 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 His blood pressure initially on scene was 100/70 and pulse ox was 90% on 2 L. He does not typically use home O2 at his local [facility]. He received aspirin prior to arrival. No cough or fevers, but has persistent chest pain on arrival. He reports he has been much more sedentary the last few months, spending the majority of his time in a wheelchair due to his PD and difficulty with mobility. No previous h/o VTE. He has some chronic LE edema and wears compression stockings and does feel like he has had more pain behind the knees the last 1-2 months since being more sedentary in the wheelchair. In the ER, he was sent for a CTA chest which revealed extensive pulmonary emboli with saddle embolus and evidence of right heart strain. He was hemodynamically stable and ER consulted with [facility] Jump Master who said ok to remain in this facility and start heparin gtt. Principal Diagnosis 1. Bilateral PE w/ saddle embolus 2. Chronic appearing nonocclusive DVTs RLE 3. Acute hypoxic respiratory failure d/t #1 4. Type II demand ischemia in setting of #1-3 Discharge Exam GENERAL: 70 yo well-developed, well-nourished WM. NAD. LUNGS: Nonlabored, good air exchange but diminished throughout. CARDIOVASCULAR: Regular rate and rhythm. No M/G/R. No JVD. ABDOMEN: Soft, non-tender and non-distended. BS normal x 4 quad. EXTREMITIES: Trace edema R>L. Non-tender. Peripheral pulses +2/4. NEUROLOGIC: A&O x3. PSYCHIATRIC: Cooperative. Appropriate mood and affect. SKIN: Warm, dry, intact. No rashes or lesions. Discharge Data Allergies Allergy/AdvReac Type Severity Reaction Status Date / Time No Known Allergies Allergy Verified 07/07/21 13:36 Consultations 07/09/21 10:52 Consult Vascular Surgery Routine -- saw in consult and inserted IVC on 07/10/21 Procedures Performed Operation Date: 07/10/21 14:20 Actual Procedures p Insertion of Vena Cava Filter, right femoral approach, ultrasound localization of right femoral vein, fluorscopy for positioning(Right) - Dawson Iglesias MD Ordered Studies Chest X-Ray 07/07/21 12:29 XR chest 1V portable HISTORY: 70 years-old Male Chest Pain acute atypical chest pain COMPARISON: Chest radiograph 11/08/2020 TECHNIQUE: Portable AP view of the chest FINDINGS: The right axilla is enlarged. Battery pack projects over the left chest with leads projected over the left neck. No pneumothorax, pleural effusion, airspace consolidation or overt pulmonary edema. Degenerative changes of the shoulders and spine. IMPRESSION: Cardiomegaly without acute process. ACT 112: Negative or not required by law. The above report was generated using voice recognition software. It may contain grammatical, syntax or spelling errors. Electronically signed by: Gianni Wells M.D. 07/07/2021 12:59 PM Chest CTA 07/07/21 12:37 CT angio chest dissec wo/w con HISTORY: 70 years-old Male chest and back pain acute chest and back pain COMPARISON: CT abdomen pelvis 05/29/2021, chest CT 11/19/2018 TECHNIQUE: CTA of the chest was obtained both with and without the use of 120 mL Optiray 320. 3-D coronal and sagittal MIPS were obtained from the axial data set and were submitted for review. All measurements were obtained according to NASCET criteria. A dose lowering technique was used consistent with the principals of LEYLA. FINDINGS: CTA: Mild cardiomegaly. Trace pericardial effusion. No thoracic aortic aneurysm or dissection. No mediastinal hematoma. Battery pack of the left chest wall is noted with stimulator leads extending superiorly along the left neck outside the [id number]. Extensive bilateral pulmonary emboli with saddle embolus. There is evidence of right heart strain with straightening of the intraventricular septum. CT CHEST: Unremarkable thyroid. No pathologically enlarged lymph nodes. Trace right pleural effusion. No pneumothorax. Mild subsegmental right basilar atelectasis. No pulmonary infarct, suspicious pulmonary nodule or mass. No overt pulmonary edema. The central airways are patent. Mild distention of the gallbladder. Stable right adrenal nodule. Mild fecal retention. Unremarkable soft tissues. Degenerative changes of the shoulders and spine. No acute fracture. IMPRESSION: 1. Extensive pulmonary emboli with saddle embolus. Additionally, there is evidence of right heart strain. 2. Trace right pleural effusion with mild subsegmental right basilar atelectasis. 3. No acute aortic pathology. 4. Chronic findings as above. ACT 112: Negative or not required by law. The above report was generated using voice recognition software. It may contain grammatical, syntax or spelling errors. Electronically signed by: Gianni Wells M.D. 07/07/2021 1:39 PM Venous Doppler Study 07/07/21 14:39 BILATERAL LOWER EXTREMITY VENOUS DOPPLER HISTORY: Acute pulmonary emboli saddle embolus,assess for DVT COMPARISON STUDY: CTA chest of same day FINDINGS: No left lower extremity DVT. Left-sided Saleem's cyst measures 5.7 x 4.7 x 3.0 cm. No acute occlusive deep venous thrombi are identified. Chronic appearing nonocclusive thrombi are noted at the profunda femoris and superficial femoral artery confluence and also within the distal superficial femoral vein. IMPRESSION: 1. Chronic appearing nonocclusive thrombi of the right lower extremity. 2. No left lower extremity DVT. ACT 112: Negative or not required by law. Electronically signed by: Gianni Wells M.D. 07/07/2021 5:26 PM Hospital Course (1) Pulmonary embolism, bilateral: Presents with acute chest pain and acute respiratory failure with hypoxia, found to have extensive PEs and saddle embolus on CTA Chest. With a h/o worsening mobility and sedentary lifestyle with progressive PD as well as a h/o testicular CA as risk factors although testicular CA is in remission sPESI score 3, troponin mildly elevated, with evidence on CT of RV strain, required supplemental O2, BNP 300, but HD stable (normal BP, not tachycardic) COVID test negative but is fully vaxxed and boosted [facility] Jump Master consulted by ED physician who did not recommend transfer for thrombolysis given patient was hemodynamically stable Admitted to PCU level of care Started on heparin gtt Discussed case w/ Dr. Marte ok to transition to Eliquis upon discharge 10mg BID x 1 week then reduce dose to 5mg BID Supplemental O2 provided and he has since been weaned off completely and is on room air Echo ordered and completed on 07/07, RV mildly dilated, mod TR, and RVSP elevated at 50-60mmHg Troponin mildly elevated at 0.97, follow-up troponin trending down at 0.58 consistent with type II demand ischemia in setting of bilateral PE with hypoxia B/L lower extremity venous dopplers completed, chronic-appearing multiple nonocclusive thrombi throughout RLE likely source of PE Morphine ordered as needed for chest pain but has not needed it and was subsequently discontinued IVC filter placed by Dr. 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 Follows with Oncology at [facility] with surveillance CT scans and reportedly no recurrence or mets (5) Urge incontinence: Continue Myrbetriq, finasteride, flomax (6) BPH loc w urin obs/LUTS: Continue finasteride, flomax (7) Parkinson disease: With deep brain stim in place Follows with Neuro at [facility] Continue Entacapone, Rytary 6x/day Continue Mirapex Mostly in wheelchair at [facility] Continue PT/OT--recommending SNF (8) Depression with anxiety: with significant anxiety component Continue Effexor 225mg po daily, clonazepam (unusual dose schedule but ordered as he takes at home), and trazodone hs (9) Restless leg syndrome: Continue Mirapex (10) GERD (gastroesophageal reflux disease): Continue pepcid At this time, pt is felt to be medically and hemodynamically stable for discharge back to SNF today. He has been transitioned to Eliquis 10mg that was started this morning. Heparin gtt has been discontinued. He ideally should remain on anticoagulation for approximately 6 months, but ultimately the duration will be at the discretion of his primary care provider that he follows up with at the [facility]. PT/OT recommending SNF. Case management has arranged for d/c to the [facility] who will take him back today with pended insurance authorization. He has been weaned off of supplemental O2 and is saturating mid 90s on room air. He will be discharged to SNF today and advise f/u with healthcare provider at SNF within 72 hours. Next dose of Eliquis due tonalesia. Follow all discharge instructions as outlined on discharge paperwork. Updated patient's daughter, Luann, today on the above. Pt has also been seen and evaluated by Dr. Wagner prior to discharge. Total Time Total Time Spent Total Time Spent (In Minutes): >30 minutes Discharge Plan Discharge Items Patient Disposition: Transfer [facility] Reason For Visit: PULMONARY EMBOLISM, HYPOXIA Discharge Diagnosis: Pulmonary embolism (both lungs) Activity: As commented below Activity Comment: with assistance of walker as tolerated Non-emergency contact: Primary Care Provider Call non-emergency contact if: you have any medication questions and your symptoms worsen Follow-up/Referrals: Maximiliano Guerra [Primary Care Provider] - Diet: Regular Addtl Attending Provider Instructions: You have been hospitalized due to blood clots that traveled from your leg into your lungs. This put stress on your heart. In order to treat this, you were started on medications to thin your blood. Also, a filter was placed in your superior vena cava (the large blood vessel that carries and empties deoxygenated blood back to your heart) in order to catch any future clots that may travel from your legs to your lungs. In addition, you will be transitioned to a medication called Eliquis which is a new class of blood thinners that work in your liver to thin your blood. They do not require blood work to monitor the levels. It is very important that you do not skip any doses of this medication as doing so could cause you to develop another blood clot. You will be discharged on Eliquis 10mg twice daily and after 1 week (or 7 days) your dose will change to 5mg twice daily. The total duration of treatment (usually around 6 months) will be at the discretion of the healthcare provider that you follow up with. Your next dose of Eliquis 10mg is d ue on 07/11/21 before bed. Physical therapy and occupational therapy worked with you during your hospitalization and recommended that you go to senior living level at the [facility]. This will ensure that you receive ongoing therapy in order to ensure you are ambulating safely. It is recommended that you follow up with your family doctor at the [facility] within 72 hours of discharge. Pending Studies at Discharge: No Stand-Alone Forms: My [facility] Skilled Items Patient informed of condition?: Yes DNR: Yes Discharge Level of Care: Skilled Communicable Disease: No Discharge Prognosis: Improving Lines: None Urinary Catheter: No Medications and DC Order Prescriptions: New Eliquis 5 mg (74 tabs) tablets,dose pack 5 mg PO BID Qty: 74 RF: 0 Continued acetaminophen [Tylenol] 325 mg tablet 650 mg PO Q4 MDD 3g PRN (Reason: Fever) RF: 0 Rytary 61.25-245 mg capsule, extended release 1 cap PO 6XD RF: 0 docosanol [Abreva] 10 % Cream 1 applic TOPICAL 5XD PRN (Reason: Cold Sores) RF: 0 polyethylene glycol 3350 [Miralax] 17 gram/dose Powder 17 g PO DAILY PRN (Reason: Constipation) RF: 0 clonazepam 0.5 mg tablet 0.5 mg PO BID PRN (Reason: Anxiety) RF: 0 entacapone 200 mg tablet 200 mg PO 6XD RF: 0 finasteride 5 mg tablet 5 mg PO HS RF: 0 tamsulosin 0.4 mg capsule 0.4 mg PO HS RF: 0 trazodone 150 mg tablet 75 mg PO HS RF: 0 melatonin 5 mg Tablet 5 mg PO HS RF: 0 methylcellulose (with sugar) Powder 1 tbsp PO DAILY PRN (Reason: Constipation) RF: 0 venlafaxine 75 mg capsule,extended release 24hr 75 mg PO DAILY RF: 0 venlafaxine 150 mg capsule,extended release 24hr 150 mg PO DAILY RF: 0 famotidine 20 mg tablet 20 mg PO DAILY RF: 0 magnesium hydroxide [Milk of Magnesia] 400 mg/5 mL Suspension 30 ml PO DAILY RF: 0 bisacodyl 10 mg Suppository 10 mg MO DAILY PRN (Reason: Constipation) RF: 0 Fleet Enema 19-7 gram/118 mL Enema 0 ml MO DAILY PRN (Reason: Constipation) RF: 0 cholecalciferol (vitamin D3) [Vitamin D3] 50 mcg (2,000 unit) Capsule 50 mcg PO DAILY RF: 0 pramipexole 0.75 mg tablet extended release 24 hr 0.75 mg PO HS RF: 0 Myrbetriq 50 mg tablet extended release 24 hr 50 mg PO DAILY RF: 0 Icy Hot Advanced Relief 11-16 % Cream 1 applic TOPICAL Q4H RF: 0 Discontinued Pepto-Bismol 262 mg tablet 2 tab PO Q6 PRN (Reason: gi distress) RF: 0 Discharge Orders: Discharge Order (Routine); Ordered 07/11/21 Ordered By: Cathi Moore Admission Data Admit Date/Time: 07/07/21 15:37 Attending Provider: Singh Wagner Admit Provider: aKylie Dacosta Primary Care Provider: Maximiliano Guerra Other Providers: Dawson Iglesias Other Interventions: Discharge Summary Assessment (RN) Last Done: 07/11/21 13:50 Supervising Physician Co-Signing Physician Notes I personally examined the patient and verified all serrano points of history and exam, discussed case, and agree with decision making with William Moore PAC Feels up with going to rehab. No complaints. Otherwise as above. Vitals noted. Breathing unlabored. On room air. PEas above. Stable for SNF/rehab Coding Level of Care Code D/C DAY MANAGEMENT >30 MINS Diagnoses Pulmonary embolism, bilateral I26.99 Deep vein thrombosis (DVT) of right lower extremity I82.401 Acute respiratory failure with hypoxia J96.01 Seminoma of right testis C62.91 Urge incontinence N39.41 BPH loc w urin obs/LUTS N40.1 Parkinson disease G20 Depression with anxiety F41.8 Restless leg syndrome G25.81 GERD (gastroesophageal reflux disease) K21.9
== END 2021-07-11 15:10 | DRG 175 ==
LOC: ED 12:19 → 2S 15:37 → SUATTDRO 15:37 → 2S 17:55